=== PATIENT | male | born 1960 | race Caucasian/White ===

== ENCOUNTER 2023-01-28 14:24 | Inpatient (IN) | payer OTHER ==
--- NOTE | 2023-01-28 15:00 | ED ---
General Adult HPI - General Chief complaint: Recheck/Abnormal Lab/Rx Stated complaint: Abn Labs Time Seen by Provider: 01/28/23 14:35 Source: patient, EMS, RN notes reviewed, old records reviewed Mode of arrival: EMS Limitations: no limitations - History of Present Illness Initial comments: This is a 8-year-old male who presents emergency department because his physician called him and told to come in because he has some lab abnormality. We had previously got a phone call the stated his potassium was elevated. Patient states he was recently [facility] where the was told he had a cardiac mass as well as a kidney mass but he was irritated with them and did not like the facility so he left AMA. Patient states he does not know w hat their plan was for the masses were from. Patient states he has no chest pain no difficulty breathing or shortness of breath per patient denies any abdominal pain patient denies nausea vomiting. Patient denies headache patient denies numbness weakness. Patient denies any symptoms whatsoever he only came in because his physician told him to come to the emergency department. - Related Data Home Medications Medication Instructions Recorded Confirmed Atorvastatin [Lipitor] 40 mg PO HS 01/28/23 01/28/23 Cholecalciferol [Vitamin D3 (25 50 mcg PO DAILY 01/28/23 01/28/23 Mcg = 1000 Iu)] Empagliflozin [Jardiance] 25 mg PO DAILY 01/28/23 01/28/23 Famotidine [Pepcid] 20 mg PO BID 01/28/23 01/28/23 Ferrous Sulfate [Feosol] 325 mg PO BID 01/28/23 01/28/23 Furosemide [Lasix] 20 mg PO BID 01/28/23 01/28/23 Gabapentin 600 mg PO BID 01/28/23 01/28/23 Insulin NPH/Reg Insulin 70/30 50 unit SQ AC-SUPPER 01/28/23 01/28/23 [humuLIN 70/30 VIAL] Insulin NPH/Reg Insulin 70/30 60 units SQ AC-BRKFST 01/28/23 01/28/23 [humuLIN 70/30 VIAL] Liraglutide [Victoza 2-Shree] 1.8 mg SQ DAILY@1200 01/28/23 01/28/23 Magnesium Oxide [Magox 400] 400 mg PO DAILY 01/28/23 01/28/23 Meloxicam [Mobic] 15 mg PO DAILY 01/28/23 01/28/23 Metoprolol Tartrate [Lopressor] 50 mg PO BID 01/28/23 01/28/23 allopurinoL [Zyloprim] 100 mg PO DAILY 01/28/23 01/28/23 amLODIPine [Norvasc] 10 mg PO DAILY 01/28/23 01/28/23 calcitrioL [Calcitriol] 0.5 mcg PO SUMOWEFR 01/28/23 01/28/23 lisinopriL [Zestril] 10 mg PO DAILY 01/28/23 01/28/23 metFORMIN HCL 1,000 mg PO BID 01/28/23 01/28/23 traMADol HCL 100 mg PO Q8H PRN 01/28/23 01/28/23 Allergies Allergy/AdvReac Type Severity Reaction Status Date / Time avocado Allergy Swelling Verified 01/28/23 17:25 Penicillins Allergy Rash/Hives Verified 01/28/23 17:25 Review of Systems ROS Statement: Those systems with pertinent positive or pertinent negative responses have been documented in the HPI. ROS Other: All systems not noted in ROS Statement are negative. General Exam - General Exam Comments Initial Comments: GENERAL: Patient is well-developed and well-nourished. Patient is nontoxic and well- hydrated and is in no acute distress. ENT: Neck is soft and supple. No significant lymphadenopathy is noted. Oropharynx is clear. Moist mucous membranes. Neck has full range of motion without eliciting any pain. EYES: The sclera were anicteric and conjunctiva were pink and moist. Extraocular movements were intact and pupils were equal round and reactive to light. Eyelids were unremarkable. PULMONARY: Unlabored respirations. Good breath sounds bilaterally. No audible rales rhonchi or wheezing was noted. CARDIOVASCULAR: There is a regular rate and rhythm without any murmurs gallops or rubs. ABDOMEN: Soft and nontender with normal bowel sounds. SKIN: Skin is clear with no lesions or rashes and otherwise unremarkable. NEUROLOGIC: Patient is alert and oriented x3. Cranial nerves II through XII are grossly intact. Motor and sensory are also intact. Normal speech, volume and content. Symmetrical smile. MUSCULOSKELETAL: Normal extremities with adequate strength and full range of motion. Edema 2+ ankle ankle left LYMPHATICS: No significant lymphadenopathy is noted PSYCHIATRIC: Normal psychiatric evaluation. Limitations: no limitations Course Vital Signs 01/28/23 14:25 Temperature 98.7 F Pulse Rate 93 Respiratory 18 Rate Blood Pressure 106/79 O2 Sat by Pulse 96 Oximetry Medical Decision Making - Medical Decision Making EKG is interpreted by myself. EKG shows sinus rhythm at 92 bpm UT interval 276 QRS is 99 Q-T intervals 362 QTC is 412. Patient's EKG shows no ST segment elevation or depression Was pt. sent in by a medical professional or institution (CHRISTOPHER Desai, [employer], urgent care, hospital, or care home...) When possible be specific @ -Patient's primary medical care doctor sent the patient to the emergency department Did you speak to anyone other than the patient for history (EMS, parent, family, police, friend...)? What history was obtained from this source @ -No Did you review nursing and triage notes (agree or disagree)? Why? @ -I reviewed and agree with nursing and triage notes Were old charts reviewed (outside hosp., previous admission, EMS record, old EKG, old radiological studies, urgent care reports/EKG's, care home records)? Report findings @ -. I reviewed prior charts and lab work on this patient from a previous hospital and from previous visits here Differential Diagnosis (chest pain, altered mental status, abdominal pain women, abdominal pain men, vaginal bleeding, weakness, fever, dyspnea, syncope, headache, dizziness, GI bleed, back pain, seizure, CVA, palpatations, mental health, musculoskeletal)? @ -. Hyperkalemia EKG interpreted by me (3pts min.). @ -As above X-rays interpreted by me (1pt min.). @ -None done CT interpreted by me (1pt min.). @ -None done U/S interpreted by me (1pt. min.). @ -None done What testing was considered but not performed or refused? (CT, X-rays, U/S, labs)? Why? @ -None What meds were considered but not given or refused? Why? @ -None Did you discuss the management of the patient with other professionals (professionals i.e. CHRISTOPHER Desai, ST[employer]TER, lab, RT, psych nurse, public health social worker, vending mechanic, teacher, chief nursing officer, cooperative manager)? Give summary @ -I spoke with son physicians and they agreed to admit the patient Was smoking cessation discussed for >3mins.? @ -No Was critical care preformed (if so, how long)? @ -No Were there social determinants of health that impacted care today? How? (Homelessness, low income, unemployed, alcoholism, drug addiction, transportation, low edu. Level, literacy, decrease access to med. care, alf, rehab)? @ -No Was there de-escalation of care discussed even if they declined (Discuss DNR or withdrawal of care, Hospice)? DNR status @ -No What co-morbidities impacted this encounter? (DM, HTN, Smoking, COPD, CAD, Cancer, CVA, ARF, Chemo, Hep., AIDS, mental health diagnosis, sleep apnea, morbid obesity)? @ -None Was patient admitted / discharged? Hospital course, mention meds given and route, prescriptions, significant lab abnormalities, going to OR and other pe rtinent info. @ -Potassium was elevated so gave the patient Kayexalate as well as 15 units of IV insulin, sodium bicarbonate, calcium chloride. I spoke with son physicians agreed to admit the patient. I admitted the patient I wrote admitting orders. Undiagnosed new problem with uncertain prognosis? @ -No Drug Therapy requiring intensive monitoring for toxicity (Heparin, Nitro, Insulin, Cardizem)? @ -No Were any procedures done? @ -No Diagnosis/symptom? @ -Hyperkalemia Acute, or Chronic, or Acute on Chronic? @ -Acute Uncomplicated (without systemic symptoms) or Complicated (systemic symptoms)? @ -Complicated Side effects of treatment? @ -No Exacerbation, Progression, or Severe Exacerbation? @ -No Poses a threat to life or bodily function? How? (Chest pain, USA, MA, pneumonia, PE, COPD, DKA, ARF, appy, cholecystitis, CVA, Diverticulitis, Homicidal, Suicidal, threat to staff... and all critical care pts) @ -Yes this could lead to an arrhythmia and Diagnosis/symptom? @ -Hyperglycemia Acute, or Chronic, or Acute on Chronic? @ -Acute Uncomplicated (without systemic symptoms) or Complicated (systemic symptoms)? @ -Complicated Side effects of treatment? @ -none Exacerbation, Progression, or Severe Exacerbation] @ -no Poses a threat to life or bodily function? @ -no - Lab Data Result diagrams: 01/28/23 15:55 01/28/23 15:55 Lab Results 01/28/23 01/28/23 01/28/23 Range/Units 15:55 15:55 17:44 WBC 11.7 H (3.8-10.6) k/uL RBC 4.04 L (4.30-5.90) m/uL Hgb 9.6 L (13.0-17.5) gm/dL Hct 32.8 L (39.0-53.0) % MCV 81.2 (80.0-100.0) fL MCH 23.7 L (25.0-35.0) pg MCHC 29.2 L (31.0-37.0) g/dL RDW 16.4 H (11.5-15.5) % Plt Count 322 (150-450) k/uL MPV 8.8 Neutrophils % 79 % Lymphocytes % 14 % Monocytes % 3 % Eosinophils % 2 % Basophils % 1 % Neutrophils # 9.2 H (1.3-7.7) k/uL Lymphocytes # 1.7 (1.0-4.8) k/uL Monocytes # 0.4 (0-1.0) k/uL Eosinophils # 0.3 (0-0.7) k/uL Basophils # 0.1 (0-0.2) k/uL Hypochromasia Marked Anisocytosis Slight Sodium 134 L (137-145) mmol/L Potassium 6.1 H* (3.5-5.1) mmol/L Chloride 97 L (98-107) mmol/L Carbon Dioxide 20 L (22-30) mmol/L Anion Gap 17 mmol/L BUN 47 H (9-20) mg/dL Creatinine 2.90 H (0.66-1.25) mg/dL Est GFR (CKD-EPI)AfAm 26 (>60 ml/min/1.73 sqM) Est GFR (CKD-EPI)NonAf 22 (>60 ml/min/1.73 sqM) Glucose 650 H* (74-99) mg/dL Calcium 9.7 (8.4-10.2) mg/dL Magnesium 1.9 (1.6-2.3) mg/dL Total Bilirubin 0.4 (0.2-1.3) mg/dL AST 13 L (17-59) U/L ALT 13 (4-49) U/L Alkaline Phosphatase 275 H (38-126) U/L Total Protein 7.2 (6.3-8.2) g/dL Albumin 3.4 L (3.5-5.0) g/dL Acetone, Qual Negative (Negative) Disposition Clinical Impression: Hyperkalemia, Hyperglycemia, Renal mass, Cardiac mass, Acute kidney injury Disposition: ADMITTED IP TO THIS HOSP Referrals: Sarah Owusu MD [Primary Care Provider] - 1-2 days Time of Disposition: 20:04
[2023-01-28 16:14] LABS: Anisocytosis Slight; Basophils # (A) 0.1 k/uL (0-0.2); Basophils % (A) 1 %; Eosinophils # (A) 0.3 k/uL (0-0.7); Eosinophils % (A) 2 %; HCT 32.8 % (39.0-53.0); HGB 9.6 gm/dL (13.0-17.5); Hypochromasia Marked; Lymphocytes # (A) 1.7 k/uL (1.0-4.8); Lymphocytes % (A) 14 %; MCH 23.7 pg (25.0-35.0); MCHC 29.2 g/dL (31.0-37.0); MCV 81.2 fL (80.0-100.0); Mean Platelet Volume 8.8; Monocytes # (A) 0.4 k/uL (0-1.0); Monocytes % (A) 3 %; Neutrophils # (A) 9.2 k/uL (1.3-7.7); Neutrophils % (A) 79 %; Platelet Count 322 k/uL (150-450); RBC 4.04 m/uL (4.30-5.90); RDW 16.4 % (11.5-15.5); WBC 11.7 k/uL (3.8-10.6)
[2023-01-28 16:30] LABS: ALT 13 U/L (4-49); AST 13 U/L (17-59); African American GFR (CKD) 26 (>60 ml/min/1.73 sqM); Albumin 3.4 g/dL (3.5-5.0); Alkaline Phosphatase 275 U/L (38-126); Anion Gap 17 mmol/L; Blood Urea Nitrogen 47 mg/dL (9-20); Calcium 9.7 mg/dL (8.4-10.2); Carbon Dioxide 20 mmol/L (22-30); Chloride 97 mmol/L (98-107); Magnesium 1.9 mg/dL (1.6-2.3); Non-African American GFR(CKD) 22 (>60 ml/min/1.73 sqM); Sodium 134 mmol/L (137-145); Total Bilirubin 0.4 mg/dL (0.2-1.3); Total Protein 7.2 g/dL (6.3-8.2)
[2023-01-28 16:43] LABS: Glucose 650 mg/dL (74-99); Potassium 6.1 mmol/L (3.5-5.1)
[2023-01-28] MEDS ORDERED: INSULIN ASPART (NovoLOG) 100 UNIT/ML VIAL SQ ONE (17:02)
[2023-01-28] MEDS ORDERED: SODIUM CHLORIDE 0.9% 500 ML 500 ML IV ONE (17:02)
[2023-01-28] MEDS ORDERED: INSULIN REGULAR 100 UNIT/ML VIAL (IV) IV ONE (17:06)
[2023-01-28] MEDS ORDERED: SODIUM BICARB 8.4% 50 ML SYR (1 MEQ/ML) IV STA (17:07)
[2023-01-28] MEDS ORDERED: SODIUM POLYSTYRENE SULFONATE 15 GM/60 ML BOTTLE PO STA (17:07)
[2023-01-28] MEDS ORDERED: CALCIUM CHLORIDE 100 MG/ML 10 ML SYRINGE IVP STA (17:07)
[2023-01-28] MEDS ORDERED: SODIUM CHLORIDE 0.9% 1,000 ML IV ONE (20:08)
[2023-01-28 20:39] LABS: Glucose,Whole Blood 286 mg/dL (70-110)
--- NOTE | 2023-01-28 23:42 | P.HPIM ---
History of Present Illness H&P Date: 01/28/23 Patient is a 62-year-old male with a PMH of type II DM, chronic debility (wheelchair bound), hypertension, hyperlipidemia, who was sent to the emergency room by his PCP for abnormal blood work. Patient reports that he received a call earlier today from his PCPs office saying that his potassium was elevated and that his kidney function was abnormal any active or the emergency room. He also reports recently being admitted at [facility] were he was told he had a cardiac mass as well as both full kidney masses the patient was not satisfied with her care and decided to leave AMA. He does not recall the exact dates from when he was hospitalized but states that it was in the last few we eks. Patient does not recall if he has seen an oncologist yet. He had no active complaints at the time of interview. Denied experiencing chest discomfort, shortness of breath, fever, chills, cough, nausea, vomiting, abdominal pain, diarrhea. In the emergency room and EKG revealed sinus rhythm at [address]/T-wave changes noted as reviewed by me. Laboratory evaluation revealed a potassium of 6.1, glucose 650, creatinine 2.9 (baseline 1.6), glucose 650, anion gap 17, acetone negative, sodium 134, chloride 97, WBC count 11.7, and hemoglobin 9.6 (down from 13 in 01/2022). ED documentation reviewed and case discussed with ED provider. [] Review of systems: Pertinent positives and negatives as discussed in HPI, a complete review of systems was performed and all other systems are negative. Physical examination: Vital signs reviewed General: Disheveled male, no distress, appears older than stated age, obese Derm: no unusual rashes/lesions, warm Head: atraumatic, normocephalic, symmetric Eyes: EOMI, no lid lag, anicteric sclera, pupils equal round reactive to light ENT: Nose and ears atraumatic Neck: No cervical lymphadenopathy, trachea midline, supple Mouth: no lip lesion, mucus membranes moist Cardiovascular: S1S2 reg, no murmur, positive dorsalis pedis pulse bilateral, 1+ bilateral lower extremity edema Lungs: CTA bilateral, no rhonchi, no rales, no accessory muscle use Abdominal: soft, nontender to palpation, no guarding Ext: muscle strength 4 out of 5 in all 4 extremities grossly, no gross muscle atrophy, no contractures, Neuro: CN II-XI grossly intact, no gross focal neuro deficits Psych: Alert, oriented, appropriate affect Assessment: Hyperkalemia, suspect may be due to acute kidney injury Uncontrolled type II DM with hyperglycemia Leukocytosis, likely due to acute stress with no signs of active infection at this time Normocytic anemia, unclear etiology Bilateral lower extremity pitting edema Chronic conditions: Chronic debility, hypertension, hyperlipidemia Imaging: In the emergency room and EKG revealed sinus rhythm at [address]/T-wave changes noted as reviewed by me Data Review: Laboratory evaluation revealed a potassium of 6.1, glucose 650, creatinine 2.9 (baseline 1.6), glucose 650, anion gap 17, acetone negative, sodium 134, chloride 97, WBC count 11.7, and hemoglobin 9.6 (down from 13 in 01/2022). Plan: Status post hyperkalemia cocktail including 30 g Kayexalate Insulin sliding scale and blood glucose monitoring Monitor BMP Obtain echocardiogram Cardiac monitoring Nephrology consult Continue home medications aside from PIERO inhibitor and oral hypoglycemic agents Check anemia panel DVT prophylaxis: Lovenox Subq The patient is admitted with an anticipated greater than 2 midnight stay for evaluation of hyperkalemia CODE STATUS: Full Code Discussed with: Patient Anticipated discharge place: Home Past Medical History - Past Family History Father Family Medical History: Hyperlipidemia Medications and Allergies Home Medications Medication Instructions Recorded Confirmed Type Atorvastatin [Lipitor] 40 mg PO HS 01/28/23 01/28/23 History Cholecalciferol [Vitamin D3 (25 50 mcg PO DAILY 01/28/23 01/28/23 History Mcg = 1000 Iu)] Empagliflozin [Jardiance] 25 mg PO DAILY 01/28/23 01/28/23 History Famotidine [Pepcid] 20 mg PO BID 01/28/23 01/28/23 History Ferrous Sulfate [Feosol] 325 mg PO BID 01/28/23 01/28/23 History Furosemide [Lasix] 20 mg PO BID 01/28/23 01/28/23 History Gabapentin 600 mg PO BID 01/28/23 01/28/23 History Insulin NPH/Reg Insulin 70/30 50 unit SQ AC-SUPPER 01/28/23 01/28/23 History [humuLIN 70/30 VIAL] Insulin NPH/Reg Insulin 70/30 60 units SQ AC-BRKFST 01/28/23 01/28/23 History [humuLIN 70/30 VIAL] Liraglutide [Victoza 2-Shree] 1.8 mg SQ DAILY@1200 01/28/23 01/28/23 History Magnesium Oxide [Magox 400] 400 mg PO DAILY 01/28/23 01/28/23 History Meloxicam [Mobic] 15 mg PO DAILY 01/28/23 01/28/23 History Metoprolol Tartrate [Lopressor] 50 mg PO BID 01/28/23 01/28/23 History allopurinoL [Zyloprim] 100 mg PO DAILY 01/28/23 01/28/23 History amLODIPine [Norvasc] 10 mg PO DAILY 01/28/23 01/28/23 History calcitrioL [Calcitriol] 0.5 mcg PO SUMOWEFR 01/28/23 01/28/23 History lisinopriL [Zestril] 10 mg PO DAILY 01/28/23 01/28/23 History metFORMIN HCL 1,000 mg PO BID 01/28/23 01/28/23 History traMADol HCL 100 mg PO Q8H PRN 01/28/23 01/28/23 History Allergies Allergy/AdvReac Type Severity Reaction Status Date / Time avocado Allergy Swelling Verified 01/28/23 17:25 Penicillins Allergy Rash/Hives Verified 01/28/23 17:25 Physical Exam Vitals: Vital Signs Temp Pulse Resp BP Pulse Ox 01/28/23 20:20 112 H 20 104/58 97 01/28/23 20:00 111 H 01/28/23 19:00 108 H 18 98 01/28/23 14:25 98.7 F 93 18 106/79 96 Intake and Output 01/28/23 01/28/23 01/29/23 14:59 22:59 06:59 Other: Weight 113.398 kg Results CBC & Chem 7: 01/28/23 15:55 01/28/23 15:55 Labs: Abnormal Lab Results - Last 24 Hours (Table) 01/28/23 01/28/23 01/28/23 Range/Units 15:55 15:55 20:38 WBC 11.7 H (3.8-10.6) k/uL RBC 4.04 L (4.30-5.90) m/uL Hgb 9.6 L (13.0-17.5) gm/dL Hct 32.8 L (39.0-53.0) % MCH 23.7 L (25.0-35.0) pg MCHC 29.2 L (31.0-37.0) g/dL RDW 16.4 H (11.5-15.5) % Neutrophils # 9.2 H (1.3-7.7) k/uL Sodium 134 L (137-145) mmol/L Potassium 6.1 H* (3.5-5.1) mmol/L Chloride 97 L (98-107) mmol/L Carbon Dioxide 20 L (22-30) mmol/L BUN 47 H (9-20) mg/dL Creatinine 2.90 H (0.66-1.25) mg/dL Glucose 650 H* (74-99) mg/dL POC Glucose (mg/dL) 286 H (70-110) mg/dL AST 13 L (17-59) U/L Alkaline Phosphatase 275 H (38-126) U/L Albumin 3.4 L (3.5-5.0) g/dL
[2023-01-29 01:28] LABS: Glucose,Whole Blood 346 mg/dL (70-110)
[2023-01-29 06:43] LABS: Glucose,Whole Blood 295 mg/dL (70-110)
[2023-01-29] MEDS ORDERED: INSULIN DETEMIR (LEVEMIR) 100 UNIT/ML SYR SQ SCH (07:00)
[2023-01-29] MEDS: INSULIN ASPART (NovoLOG) 100 UNIT/ML VIAL SQ SCH ×4 (07:39→21:45)
[2023-01-29] MEDS ORDERED: ENOXAPARIN 40 MG/0.4 ML SYRINGE SQ SCH (09:00)
[2023-01-29] MEDS ORDERED: amLODIPine 10 MG TAB PO SCH (09:00)
[2023-01-29 09:32] LABS: Anisocytosis Slight; Basophils # (A) 0.1 k/uL (0-0.2); Basophils % (A) 1 %; Eosinophils # (A) 0.3 k/uL (0-0.7); Eosinophils % (A) 3 %; HCT 33.6 % (39.0-53.0); HGB 10.1 gm/dL (13.0-17.5); Hypochromasia Marked; Lymphocytes # (A) 2.1 k/uL (1.0-4.8); Lymphocytes % (A) 17 %; MCH 23.8 pg (25.0-35.0); MCHC 30.1 g/dL (31.0-37.0); MCV 79.2 fL (80.0-100.0); Mean Platelet Volume 7.9; Microcytosis Slight; Monocytes # (A) 0.4 k/uL (0-1.0); Monocytes % (A) 3 %; Neutrophils # (A) 9.5 k/uL (1.3-7.7); Neutrophils % (A) 76 %; Platelet Count 352 k/uL (150-450); RBC 4.23 m/uL (4.30-5.90); RDW 16.6 % (11.5-15.5); WBC 12.5 k/uL (3.8-10.6)
[2023-01-29 09:44] LABS: African American GFR (CKD) 32 (>60 ml/min/1.73 sqM); Anion Gap 14 mmol/L; Blood Urea Nitrogen 41 mg/dL (9-20); Calcium 10.4 mg/dL (8.4-10.2); Carbon Dioxide 26 mmol/L (22-30); Chloride 103 mmol/L (98-107); Glucose 258 mg/dL (74-99); Magnesium 1.7 mg/dL (1.6-2.3); Non-African American GFR(CKD) 28 (>60 ml/min/1.73 sqM); Potassium 4.5 mmol/L (3.5-5.1); Sodium 143 mmol/L (137-145)
[2023-01-29] MEDS: GABAPENTIN 300 MG CAP PO SCH ×2 (09:58→21:45)
[2023-01-29] MEDS: FUROSEMIDE 20 MG TAB PO SCH ×2 (09:58→21:45)
[2023-01-29] MEDS: METOPROLOL TARTRATE 50 MG TAB PO SCH ×2 (09:58→21:46)
[2023-01-29] MEDS: allopurinoL 100 MG TAB PO SCH (09:58)
[2023-01-29 11:31] LABS: Glucose,Whole Blood 268 mg/dL (70-110)
[2023-01-29 12:03] LABS: % Iron Saturation 9.64 (15.00-50.00)
--- NOTE | 2023-01-29 12:09 | P.NPCON ---
History of Present Illness - Reason for Consult acute renal failure - History of Present Illness Patient is a 62-year-old male with history of type 2 diabetes, hypertension and chronic kidney disease NKF stage IIIA with previous creatinine around 1.6-1.4 mg/dL in 2019 and 2021. Patient was sent into the hospital by PCP due to elevated potassium and worsening renal function. Patient is noted to be on meloxicam and lisinopril at home prior to admission. He denied any significant urinary symptoms and states that he has been voiding. Blood pressure is on the lower side with systolic at 104-106 mmHg. Serum creatinine was 3.0 on 01/27/2023 and is down to 2.4 today. Status post IV fluids. Potassium is down to 4.5 Review of Systems as per HPI Past Medical History - Past Family History Father Family Medical History: Hyperlipidemia Medications and Allergies Home Medications Medication Instructions Recorded Confirmed Type Atorvastatin [Lipitor] 40 mg PO HS 01/28/23 01/28/23 History Cholecalciferol [Vitamin D3 (25 50 mcg PO DAILY 01/28/23 01/28/23 History Mcg = 1000 Iu)] Empagliflozin [Jardiance] 25 mg PO DAILY 01/28/23 01/28/23 History Famotidine [Pepcid] 20 mg PO BID 01/28/23 01/28/23 History Ferrous Sulfate [Feosol] 325 mg PO BID 01/28/23 01/28/23 History Furosemide [Lasix] 20 mg PO BID 01/28/23 01/28/23 History Gabapentin 600 mg PO BID 01/28/23 01/28/23 History Insulin NPH/Reg Insulin 70/30 50 unit SQ AC-SUPPER 01/28/23 01/28/23 History [humuLIN 70/30 VIAL] Insulin NPH/Reg Insulin 70/30 60 units SQ AC-BRKFST 01/28/23 01/28/23 History [humuLIN 70/30 VIAL] Liraglutide [Victoza 2-Shree] 1.8 mg SQ DAILY@1200 01/28/23 01/28/23 History Magnesium Oxide [Magox 400] 400 mg PO DAILY 01/28/23 01/28/23 History Meloxicam [Mobic] 15 mg PO DAILY 01/28/23 01/28/23 History Metoprolol Tartrate [Lopressor] 50 mg PO BID 01/28/23 01/28/23 History allopurinoL [Zyloprim] 100 mg PO DAILY 01/28/23 01/28/23 History amLODIPine [Norvasc] 10 mg PO DAILY 01/28/23 01/28/23 History calcitrioL [Calcitriol] 0.5 mcg PO SUMOWEFR 01/28/23 01/28/23 History lisinopriL [Zestril] 10 mg PO DAILY 01/28/23 01/28/23 History metFORMIN HCL 1,000 mg PO BID 01/28/23 01/28/23 History traMADol HCL 100 mg PO Q8H PRN 01/28/23 01/28/23 History Allergies Allergy/AdvReac Type Severity Reaction Status Date / Time avocado Allergy Swelling Verified 01/28/23 17:25 Penicillins Allergy Rash/Hives Verified 01/28/23 17:25 Physical Exam Vitals: Vital Signs Temp Pulse Resp BP Pulse Ox 01/29/23 10:01 115 H 20 115/59 99 01/29/23 07:43 88 20 126/77 99 01/29/23 06:30 98.9 F 121 H 18 126/79 97 01/29/23 02:00 117 H 20 105/60 95 01/28/23 20:20 112 H 20 104/58 97 01/28/23 20:00 111 H 01/28/23 19:00 108 H 18 98 01/28/23 14:25 98.7 F 93 18 106/79 96 Patient is awake, comfortable, no acute distress. Examination of the heart S1 and S2 Examination of the lungs shows bilateral breath sounds are heard Examination of the extremities shows no edema. Abdomen is soft, non tender BLOCKLAYER exam is intact. Results - Lab Results Most recent lab results Calcium 10.4 mg/dL (8.4-10.2) H 01/29/23 06:58 Magnesium 1.7 mg/dL (1.6-2.3) 01/29/23 06:58 01/29/23 06:58 01/29/23 06:58 Assessment and Plan Assessment: 1. Acute kidney injury, nonoliguric secondary to hypotension in the setting of use of NSAIDs and PIERO inhibitor's. Renal function is improving. 2. Chronic kidney disease NKF stage III with previous creatinine at 1.4-1.6 mg/dL in 2021 and 2019. Etiology is diabetic kidney disease as urine microalbumin creatinine ratio was elevated at 301 in 2021 but UA was negative for protein 3. Hyperkalemia associated with acute kidney injury in the setting of use of piero inhibitors and nonsteroidal anti-inflammatory agents. Currently improved 4. Anemia rule out iron deficiency 5. Hypertension with CK D currently controlled 6. Mild lower extremity edema possibly related to amlodipine Plan: Continue to hold lisinopril Avoid use of nonsteroidal anti-inflammatory agents including meloxicam Hold Lasix for now. Decrease dose of amlodipine to 5 mg daily Check UA Check ultrasound of the kidneys Thank you for the consultation. We will continue to follow the patient with you during his hospitalization.
[2023-01-29 14:21] LABS: Appearance,Urine Clear (Clear); Color,Urine Yellow; Specific Gravity,Urine 1.015 (1.001-1.035)
[2023-01-29 14:22] LABS: Bilirubin,Urine Negative (Negative); Blood,Urine Trace (Negative); Glucose,Urine (UA) 4+ (Negative); Ketones,Urine Negative (Negative); Leukocyte Esterase,Urine Negative (Negative); Nitrite,Urine Negative (Negative); Protein,Urine 1+ (Negative); Urobilinogen,Urine 0.2 mg/dL (<2.0)
[2023-01-29 14:25] LABS: Bacteria,Urine Rare /hpf; Hyaline Casts,Urine 3 /lpf (0-2); Mucus,Urine Rare /hpf; RBC,Urine 2 /hpf (0-5); Squamous Epithelial Cell,Urine <1 /hpf (0-4); WBC,Urine 1 /hpf (0-5)
--- NOTE | 2023-01-29 14:45 | US ---
EXAMINATION TYPE: US kidneys/renal and bladder DATE OF EXAM: 01/29/2023 COMPARISON: NONE CLINICAL INDICATION: Male, 62 years old with history of jose; ckd EXAM MEASUREMENTS: Right Kidney: 12.9 x 6.3 x 7.3 cm Left Kidney: 11.9 x 4.8 x 6.7 cm Right Kidney: 6.0 x 5.5 x 5.7cm mid pole hypoechoic lesion Left Kidney: 1.4 x 1.2 x 1.0cm mid pole cyst Bladder: not distended There is no evidence for hydronephrosis at this point in time. No nephrolithiasis is seen. No cornelia s are identified. The urinary bladder is anechoic. Bilateral ureteral jets are seen. IMPRESSION: 1. Normal sized kidneys. 2. left renal cortex mildly hyperechoic suggesting mild medical renal disease. 3. Hypoechoic mass in the right kidney which most likely represents a cyst. Could be confirmed with C T of the abdomen and pelvis. 4. No hydronephrosis or renal calculus
--- NOTE | 2023-01-29 16:29 | P.PN ---
Subjective Progress Note Date: 01/29/23 Hospital Course: 62-year-old male with a PMH of type II DM, chronic debility (wheelchair bound), hypertension, hyperlipidemia, who was sent to the emergency room by his PCP for abnormal blood work. In the emergency room and EKG revealed sinus rhythm at [address]/T-wave changes noted as reviewed by me. Laboratory evaluation revealed a potassium of 6.1, glucose 650, creatinine 2.9 (baseline 1.6), glucose 650, anion gap 17, acetone negative, sodium 134, chloride 97, WBC count 11.7, and hemoglobin 9.6 (down from 13 in 01/2022). Patient admitted for acute kidney injury, uncontrolled type 2 diabetes with hyperglycemia, and hyperkalemia. CODY on 01/07/23 showed large, mobile, serpiginous right atrial mass seen originating from the IVC to the right atrium and prolapsing into the RV measuring greater than 6 cm x 1 cm, with ultrasound also demonstrated 2 solid masses concerning for RCC, patient does have a family history of RCC, CT head and MRI brain and ulcerative sclera did not show any acute intracranial abnormalities, only chronic changes Subjective: Patient seen and examined at bedside. No acute events overnight. Pertinent positives and negatives as discussed above, a complete review of systems was performed and all other systems are negative. Vitals Signs Reviewed. General: Disheveled male, no distress, appears older than stated age, obese Derm: no unusual rashes/lesions, warm Head: atraumatic, normocephalic, symmetric Eyes: EOMI, no lid lag, anicteric sclera, pupils equal round reactive to light ENT: Nose and ears atraumatic Neck: No cervical lymphadenopathy, trachea midline, supple Mouth: no lip lesion, mucus membranes moist Cardiovascular: S1S2 reg, no murmur, positive dorsalis pedis pulse bilateral, 1+ bilateral lower extremity edema Lungs: CTA bilateral, no rhonchi, no rales, no accessory muscle use Abdominal: soft, nontender to palpation, no guarding Ext: muscle strength 4 out of 5 in all 4 extremities grossly, no gross muscle at rophy, no contractures, Neuro: CN II-XI grossly intact, no gross focal neuro deficits Psych: Alert, oriented, appropriate affect Data Reviewed Today: Pertinent Labs: WBC 12.5, hemoglobin 10.1, MCV 79.2, platelet 252, sodium 143, potassium 4.5, creatinine 2.44, blood sugars range between 258-346, low iron, low percent saturation, low TIBC, ferritin, urinalysis shows negative leukocyte esterase and nitrites, 1+ protein. Imaging: Bladder ultrasound shows a hypoechoic mass in the right kidney most likely represent a cyst, no hydronephrosis or renal calculus. Assessment and Plan: Active: Syncope Large right atrial mass Renal masses Acute kidney injury on chronic kidney disease, improving Hyperkalemia, resolved Uncontrolled type 2 diabetes with hyperglycemia Leukocytosis Anemia of chronic disease -Based on the history of syncope, and large intracardiac mass, patient would benefit from a tertiary care center evaluation. Patient was at [facility] about 3 weeks ago a left AMA. Currently he does not want to go back to [facility] -Renal function slightly improved -Nephrology note reviewed, hold lisinopril, hold Lasix, decrease dose of amlodipine 5 mg -Levemir increased to 30 units twice a day, sliding scale insulin, monitor for hypoglycemia -Blood cultures ordered Chronic: Hypertension Gout Neuropathy GERD DVT ppx: Subcu heparin Code status: Full code Anticipated discharge place: Pending clinical course Anticipated discharge time: Pending clinical course Objective - Vital Signs Vital signs: Vital Signs Temp 98.9 F 01/29/23 16:00 Pulse 100 01/29/23 16:00 Resp 16 01/29/23 16:00 BP 126/82 01/29/23 16:00 Pulse Ox 99 01/29/23 10:01 FiO2 Intake & Output 01/28/23 01/29/23 01/29/23 18:59 06:59 18:59 Weight 113.398 kg - Labs CBC & Chem 7: 01/29/23 06:58 01/29/23 06:58 Labs: Abnormal Lab Results - Last 24 Hours (Table) 01/28/23 01/28/23 01/29/23 Range/Units 15:55 20:38 01:26 WBC (3.8-10.6) k/uL RBC (4.30-5.90) m/uL Hgb (13.0-17.5) gm/dL Hct (39.0-53.0) % MCV (80.0-100.0) fL MCH (25.0-35.0) pg MCHC (31.0-37.0) g/dL RDW (11.5-15.5) % Neutrophils # (1.3-7.7) k/uL Sodium 134 L (137-145) mmol/L Potassium 6.1 H* (3.5-5.1) mmol/L Chloride 97 L (98-107) mmol/L Carbon Dioxide 20 L (22-30) mmol/L BUN 47 H (9-20) mg/dL Creatinine 2.90 H (0.66-1.25) mg/dL Glucose 650 H* (74-99) mg/dL POC Glucose (mg/dL) 286 H 346 H (70-110) mg/dL Calcium (8.4-10.2) mg/dL Iron (65-175) UG/DL TIBC (228-460) UG/DL % Saturation (15.00-50.00) Transferrin (204.0-354.0) mg/dL Ferritin (22.0-322.0) ng/mL AST 13 L (17-59) U/L Alkaline Phosphatase 275 H (38-126) U/L Albumin 3.4 L (3.5-5.0) g/dL Urine Protein (Negative) Urine Glucose (UA) (Negative) Urine Blood (Negative) Urine Bacteria (None) /hpf Hyaline Casts (0-2) /lpf Urine Mucus (None) /hpf 01/29/23 01/29/23 01/29/23 Range/Units 06:41 06:58 06:58 WBC 12.5 H (3.8-10.6) k/uL RBC 4.23 L (4.30-5.90) m/uL Hgb 10.1 L (13.0-17.5) gm/dL Hct 33.6 L (39.0-53.0) % MCV 79.2 L (80.0-100.0) fL MCH 23.8 L (25.0-35.0) pg MCHC 30.1 L (31.0-37.0) g/dL RDW 16.6 H (11.5-15.5) % Neutrophils # 9.5 H (1.3-7.7) k/uL Sodium (137-145) mmol/L Potassium (3.5-5.1) mmol/L Chloride (98-107) mmol/L Carbon Dioxide (22-30) mmol/L BUN (9-20) mg/dL Creatinine (0.66-1.25) mg/dL Glucose (74-99) mg/dL POC Glucose (mg/dL) 295 H (70-110) mg/dL Calcium (8.4-10.2) mg/dL Iron 19 L (65-175) UG/DL TIBC 197 L (228-460) UG/DL % Saturation 9.64 L (15.00-50.00) Transferrin 141.0 L (204.0-354.0) mg/dL Ferritin 884.0 H (22.0-322.0) ng/mL AST (17-59) U/L Alkaline Phosphatase (38-126) U/L Albumin (3.5-5.0) g/dL Urine Protein (Negative) Urine Glucose (UA) (Negative) Urine Blood (Negative) Urine Bacteria (None) /hpf Hyaline Casts (0-2) /lpf Urine Mucus (None) /hpf 01/29/23 01/29/23 01/29/23 Range/Units 06:58 11:29 14:12 WBC (3.8-10.6) k/uL RBC (4.30-5.90) m/uL Hgb (13.0-17.5) gm/dL Hct (39.0-53.0) % MCV (80.0-100.0) fL MCH (25.0-35.0) pg MCHC (31.0-37.0) g/dL RDW (11.5-15.5) % Neutrophils # (1.3-7.7) k/uL Sodium (137-145) mmol/L Potassium (3.5-5.1) mmol/L Chloride (98-107) mmol/L Carbon Dioxide (22-30) mmol/L BUN 41 H (9-20) mg/dL Creatinine 2.44 H (0.66-1.25) mg/dL Glucose 258 H (74-99) mg/dL POC Glucose (mg/dL) 268 H (70-110) mg/dL Calcium 10.4 H (8.4-10.2) mg/dL Iron (65-175) UG/DL TIBC (228-460) UG/DL % Saturation (15.00-50.00) Transferrin (204.0-354.0) mg/dL Ferritin (22.0-322.0) ng/mL AST (17-59) U/L Alkaline Phosphatase (38-126) U/L Albumin (3.5-5.0) g/dL Urine Protein 1+ H (Negative) Urine Glucose (UA) 4+ H (Negative) Urine Blood Trace H (Negative) Urine Bacteria Rare H (None) /hpf Hyaline Casts 3 H (0-2) /lpf Urine Mucus Rare H (None) /hpf
[2023-01-29 16:52] LABS: Glucose,Whole Blood 128 mg/dL (70-110)
--- NOTE | 2023-01-29 18:42 | CA ---
Transthoracic Echo Report Name: Jake Stapleton Age: 62 Gender: M : 1960 Exam Date: 01/29/2023 16:03 Exam Location: [place] [facility] Ht (in): 62 Wt (lb): 250 Ordering Physician: Nella Beard MD Attending/Referring Phys: Revenue Specialist Zoltan Larkin Procedure CPT: Indications: fluid overload Cardiac Hx: Technical Quality: Technically difficult study Contrast 1: Definity Total Dose (mL): 2 Contrast 2: Total Dose (mL): MEASUREMENTS (Male / Female) Normal Values 2D ECHO LV Diastolic Diameter PLAX 4.6 cm 4.2 - 5.9 / 3.9 - 5.3 cm LV Systolic Diameter PLAX 3.4 cm IVS Diastolic Thickness 0.9 cm 0.6 - 1.0 / 0.6 - 0.9 cm LVPW Diastolic Thickness 1.1 cm 0.6 - 1.0 / 0.6 - 0.9 cm LV Relative Wall Thickness 0.4 RV Internal Dim ED PLAX 3.7 cm LV Diastolic Volume MOD BP 64.0 cm??? 67 - 155 / 56 - 104 cm??? LV Systolic Volume MOD BP 49.8 cm??? 22 - 58 / 19 - 49 cm??? LV Ejection Fraction MOD BP 22.1 % >= 55 % LV Cardiac Index MOD BP 603.0 cm???/min???m??? LV Diastolic Volume MOD 4C 84.9 cm??? LV Systolic Volume MOD 4C 48.9 cm??? LV Ejection Fraction MOD 4C 42.4 % LV Cardiac Index MOD 4C 1537.9 cm???/min???m??? LV Diastolic Length 4C 7.9 cm LV Systolic Length 4C 7.6 cm LV Diastolic Volume MOD 2C 45.3 cm??? LV Systolic Volume MOD 2C 37.7 cm??? LV Ejection Fraction MOD 2C 16.8 % LV Cardiac Index MOD 2C 325.0 cm???/min???m??? LV Diastolic Length 2C 7.6 cm LV Systolic Length 2C 6.9 cm LA Volume 73.9 cm??? 18 - 58 / 22 - 52 cm??? LA Volume Index 32.2 cm???/m??? 16 - 28 cm???/m??? DOPPLER AV Peak Velocity 111.2 cm/s AV Peak Gradient 4.9 mmHg LVOT Peak Velocity 96.2 cm/s LVOT Peak Gradient 3.7 mmHg LVOT Velocity Time Integral 17.5 cm MV Peak Velocity 160.3 cm/s MV Peak Gradient 10.3 mmHg MV Mean Velocity 79.7 cm/s MV Mean Gradient 3.4 mmHg MV Velocity Time Integral 30.1 cm Mitral E Point Velocity 82.7 cm/s Mitral A Point Velocity 140.1 cm/s Mitral E to A Ratio 0.6 MV Deceleration Time 239.4 ms MV E' Velocity 6.2 cm/s Mitral E to MV E' Ratio 13.3 FINDINGS Left Ventricle Normal LV size. Mild concentric LVH. Left ventricular ejection fraction is estimated at 55-60 %. Right Ventricle Normal right ventricular size. Right Atrium There is a mobile thrombus originating within the RA and traveling across the tricuspid valve into the RV within each cardiac cycle and measures approx 5.3cm in length. Left Atrium Mild left atrial dilatation. LA volume index= 35ml/m2. Mitral Valve Mitral valve is not well visualized but appears moderate to severely calcified. Aortic Valve Mild AV calcification. No aortic stenosis. No aortic regurgitation. Tricuspid Valve Tricuspid valve not well visualized. Pulmonic Valve Pulmonic valve not well visualized. No pulmonic regurgitation. Pericardium Normal pericardium. Aorta Normal size aortic root. CONCLUSIONS Technically difficult study Normal LV systolic function. Mild concentric LVH Extremely mobile echodensity seems to be attached to the lower interatrial septum/tricuspid valve. The echodensity is mobile between the right atrium and right ventricle across the tricuspid valve. Moderate tricuspid regurgitation was identified. Differential diagnosis is myxoma versus thrombus versus vegetation Severe mitral annular calcification Previewed by: Dr. Rupert Jaimes MD (Electronically Signed) Final Date: 29 January 2023 18:41
[2023-01-29 20:13] LABS: Glucose,Whole Blood 232 mg/dL (70-110)
[2023-01-29] MEDS: INSULIN DETEMIR (LEVEMIR) 100 UNIT/ML SYR SQ SCH (21:45)
[2023-01-29] MEDS: ATORVASTATIN 40 MG TAB PO SCH (21:45)
[2023-01-29] MEDS: FAMOTIDINE 20 MG TAB PO SCH (21:46)
[2023-01-29] MEDS: HEPARIN SODIUM,PORCINE 5,000 UNIT/ML 1 ML VIAL SQ SCH (23:56)
[2023-01-30 06:12] LABS: Glucose,Whole Blood 85 mg/dL (70-110)
[2023-01-30] MEDS: INSULIN ASPART (NovoLOG) 100 UNIT/ML VIAL SQ SCH ×4 (06:13→20:23)
[2023-01-30] MEDS: INSULIN DETEMIR (LEVEMIR) 100 UNIT/ML SYR SQ SCH ×2 (07:44→20:23)
[2023-01-30 08:06] LABS: Anisocytosis Slight; Basophils # (A) 0.1 k/uL (0-0.2); Basophils % (A) 1 %; Eosinophils # (A) 0.4 k/uL (0-0.7); Eosinophils % (A) 3 %; HCT 31.2 % (39.0-53.0); HGB 9.3 gm/dL (13.0-17.5); Hypochromasia Marked; Lymphocytes # (A) 2.2 k/uL (1.0-4.8); Lymphocytes % (A) 17 %; MCH 23.5 pg (25.0-35.0); MCHC 29.8 g/dL (31.0-37.0); MCV 78.8 fL (80.0-100.0); Mean Platelet Volume 9.1; Microcytosis Slight; Monocytes # (A) 0.5 k/uL (0-1.0); Monocytes % (A) 4 %; Neutrophils # (A) 9.7 k/uL (1.3-7.7); Neutrophils % (A) 75 %; Platelet Count 331 k/uL (150-450); RBC 3.96 m/uL (4.30-5.90); RDW 16.8 % (11.5-15.5)
[2023-01-30 08:27] LABS: African American GFR (CKD) 42 (>60 ml/min/1.73 sqM); Anion Gap 16 mmol/L; Blood Urea Nitrogen 33 mg/dL (9-20); Calcium 9.9 mg/dL (8.4-10.2); Carbon Dioxide 25 mmol/L (22-30); Chloride 106 mmol/L (98-107); Glucose 91 mg/dL (74-99); Non-African American GFR(CKD) 36 (>60 ml/min/1.73 sqM); Potassium 3.8 mmol/L (3.5-5.1); Sodium 147 mmol/L (137-145)
[2023-01-30] MEDS: HEPARIN SODIUM,PORCINE 5,000 UNIT/ML 1 ML VIAL SQ SCH ×3 (08:54→23:22)
[2023-01-30] MEDS: amLODIPine 5 MG TAB PO SCH (08:54)
[2023-01-30] MEDS: METOPROLOL TARTRATE 50 MG TAB PO SCH ×2 (08:54→20:24)
[2023-01-30] MEDS: allopurinoL 100 MG TAB PO SCH (08:54)
[2023-01-30] MEDS: FUROSEMIDE 20 MG TAB PO SCH ×2 (08:54→20:24)
[2023-01-30] MEDS: GABAPENTIN 300 MG CAP PO SCH ×2 (08:54→20:23)
--- NOTE | 2023-01-30 09:06 | P.PN ---
Subjective Patient is seen in follow-up for acute kidney injury on chronic kidney disease. Renal function improving. Oral intake is good. Admits to good urine output. No vomiting or diarrhea. Vital signs are stable. General: No acute distress. HEENT: Head exam is unremarkable. LUNGS: No audible rhonchi or wheezes. HEART: Rate and Rhythm are regular. ABDOMEN: Nontender. EXTREMITITES: No edema. Objective - Vital Signs Vital signs: Vital Signs Temp 98.2 F 01/30/23 08:49 Pulse 115 H 01/30/23 08:49 Resp 18 01/30/23 08:49 BP 100/67 01/30/23 08:49 Pulse Ox 99 01/30/23 08:49 FiO2 Intake & Output 01/29/23 01/30/23 01/30/23 18:59 06:59 18:59 Intake Total 118 540 Output Total 625 225 Balance 118 -85 -225 Weight 113.398 kg Intake: Oral 118 540 Output: Urine 625 225 Other: Voiding Method Urinal # Voids 2 1 - Labs CBC & Chem 7: 01/30/23 07:52 01/30/23 07:52 Labs: Abnormal Lab Results - Last 24 Hours (Table) 01/29/23 01/29/23 01/29/23 Range/Units 06:58 06:58 06:58 WBC 12.5 H (3.8-10.6) k/uL RBC 4.23 L (4.30-5.90) m/uL Hgb 10.1 L (13.0-17.5) gm/dL Hct 33.6 L (39.0-53.0) % MCV 79.2 L (80.0-100.0) fL MCH 23.8 L (25.0-35.0) pg MCHC 30.1 L (31.0-37.0) g/dL RDW 16.6 H (11.5-15.5) % Neutrophils # 9.5 H (1.3-7.7) k/uL Sodium (137-145) mmol/L BUN 41 H (9-20) mg/dL Creatinine 2.44 H (0.66-1.25) mg/dL Glucose 258 H (74-99) mg/dL POC Glucose (mg/dL) (70-110) mg/dL Calcium 10.4 H (8.4-10.2) mg/dL Iron 19 L (65-175) UG/DL TIBC 197 L (228-460) UG/DL % Saturation 9.64 L (15.00-50.00) Transferrin 141.0 L (204.0-354.0) mg/dL Ferritin 884.0 H (22.0-322.0) ng/mL Urine Protein (Negative) Urine Glucose (UA) (Negative) Urine Blood (Negative) Urine Bacteria (None) /hpf Hyaline Casts (0-2) /lpf Urine Mucus (None) /hpf 01/29/23 01/29/23 01/29/23 Range/Units 11:29 14:12 16:50 WBC (3.8-10.6) k/uL RBC (4.30-5.90) m/uL Hgb (13.0-17.5) gm/dL Hct (39.0-53.0) % MCV (80.0-100.0) fL MCH (25.0-35.0) pg MCHC (31.0-37.0) g/dL RDW (11.5-15.5) % Neutrophils # (1.3-7.7) k/uL Sodium (137-145) mmol/L BUN (9-20) mg/dL Creatinine (0.66-1.25) mg/dL Glucose (74-99) mg/dL POC Glucose (mg/dL) 268 H 128 H (70-110) mg/dL Calcium (8.4-10.2) mg/dL Iron (65-175) UG/DL TIBC (228-460) UG/DL % Saturation (15.00-50.00) Transferrin (204.0-354.0) mg/dL Ferritin (22.0-322.0) ng/mL Urine Protein 1+ H (Negative) Urine Glucose (UA) 4+ H (Negative) Urine Blood Trace H (Negative) Urine Bacteria Rare H (None) /hpf Hyaline Casts 3 H (0-2) /lpf Urine Mucus Rare H (None) /hpf 01/29/23 01/30/23 01/30/23 Range/Units 20:11 07:52 07:52 WBC 13.0 H (3.8-10.6) k/uL RBC 3.96 L (4.30-5.90) m/uL Hgb 9.3 L (13.0-17.5) gm/dL Hct 31.2 L (39.0-53.0) % MCV 78.8 L (80.0-100.0) fL MCH 23.5 L (25.0-35.0) pg MCHC 29.8 L (31.0-37.0) g/dL RDW 16.8 H (11.5-15.5) % Neutrophils # 9.7 H (1.3-7.7) k/uL Sodium 147 H (137-145) mmol/L BUN 33 H (9-20) mg/dL Creatinine 1.97 H (0.66-1.25) mg/dL Glucose (74-99) mg/dL POC Glucose (mg/dL) 232 H (70-110) mg/dL Calcium (8.4-10.2) mg/dL Iron (65-175) UG/DL TIBC (228-460) UG/DL % Saturation (15.00-50.00) Transferrin (204.0-354.0) mg/dL Ferritin (22.0-322.0) ng/mL Urine Protein (Negative) Urine Glucose (UA) (Negative) Urine Blood (Negative) Urine Bacteria (None) /hpf Hyaline Casts (0-2) /lpf Urine Mucus (None) /hpf Assessment and Plan Plan: Assessment: 1. Acute kidney injury secondary to vasomotor nephropathy secondary to hypotension, hyperglycemia and PIERO inhibitor use. Renal function improving. Creatinine was 2.9 on admission and is 1.97 today. No hydronephrosis noted on kidney ultrasound. Bilateral kidney cysts present. 2. Chronic kidney disease stage IIIa with baseline creatinine 1.4-1.6 secondary to diabetic kidney disease. Serologies have been negative in the past. Patient did undergo kidney biopsy but was insufficient sample. Rebiopsy has been discussed with the patient. 3. Hyperkalemia secondary to acute kidney injury, and hyperglycemia. Resolved. 4. Hypernatremia from free water diuresis and lack of oral water intake. 5. Anemia of chronic kidney disease. Iron deficiency noted. 6. Diabetes mellitus. 7. Hypertension with chronic kidney disease. Controlled. 8. Chronic diastolic CHF with moderate tricuspid regurgitation. ?Cardiac mass versus vegetation noted. Plan: Maintain oral Lasix. Check chest x-ray. Hold amlodipine for systolic blood pressure less than 120. Add D5W at 50 mL an hour. Repeat labs in the morning.
--- NOTE | 2023-01-30 09:30 | XR ---
EXAMINATION TYPE: XR chest 1V DATE OF EXAM: 01/30/2023 COMPARISON: NONE HISTORY: 62 year-old male shortness of breath TECHNIQUE: Single frontal view of the chest is obtained. FINDINGS: There is no focal air space opacity, pleural effusion, or pneumothorax seen. The cardiac silhouette size is within normal limits. The osseous structures are intact. IMPRESSION: No acute process.
--- NOTE | 2023-01-30 10:37 | P.CRDCN ---
History of Present Illness History of present illness: HISTORY OF PRESENT ILLNESS: This is a 62-year-old male with a past medical history significant for hypertension, hyperlipidemia, diabetes, chronic kidney disease, and chronic debility (wheelchair-bound). Patient does not follow with a director of reservations. We have been asked to see the patient in consultation for abnormal echocardiogram. Patient examined at the bedside. Patient states he was called by his primary care physician secondary to abnormal lab work revealing worsening kidney function and hyperkalemia and instructed come to the emergency room. The patient also states he had 2 episodes of syncope prior to coming to the hospital. He states he was just walking when he passed out and lost consciousness. He states he had no warning signs that he was about to pass out. He states he has not had any previous episodes of syncope. He denied having any chest pain or shortness of breath. The patient states he was recently hospitalized at [facility] and was transferred to [facility] secondary to an abnormal echocardiogram. The patient underwent transthoracic echocardiogram at [facility] revealing large mobile serpiginous RV mass seen originating from the IVC to the RCA, and prolapsing into the RV, measuring greater than 6 cm x 1 cm. The patient underwent CODY at [facility] revealing preserved LV systolic function with large mass originating from the IVC prolapsing into the right atrium that could r epresent thrombus or tumor. The patient also underwent a renal ultrasound that revealed 2 solid masses on the right kidney. The patient states he had a kidney biopsy performed but is unsure where was performed or the results of it. Patient left [facility]. At the time of examination this morning, the patient denies any chest pain or pressure. He denies any shortness of breath. Denies any dizziness or lightheadedness. * EKG reveals sinus mechanism with early repolarization noted. No signs of acute ischemia. * Laboratory data: W BC 13.0. Hemoglobin 9.3. Platelet count 331. Sodium 147. Potassium 3.8. BUN 33. Creatinine 1.97. * Current home cardiac medications include lisinopril 10 mg daily, metoprolol tartrate 50 mg twice a day, amlodipine 10 mg daily, Lipitor 40 mg at night, a nd Lasix 20 mg twice a day * Repeat echocardiogram obtained this admission revealed ejection fraction 55- 60%, mobile thrombus originating in the right atrium and traveling across the tricuspid valve into the RV within each cardiac cycle and measures approximately 5.3 cm in length, and moderate tricuspid regurgitation. REVIEW OF SYSTEMS: At the time of my exam: CONSTITUTIONAL: Denies fever or chills. HEENT: Denies blurred vision, vision changes, or eye pain. Denies hemoptysis CARDIOVASCULAR: Denies chest pain. Denies orthopnea. Denies PND. Denies palpitations RESPIRATORY: Denies shortness of breath. GASTROINTESTINAL: Denies abdominal pain. Denies nausea or vomiting. HEMATOLOGIC: Denies bleeding disorders. GENITOURINARY: Denies any blood in urine. SKIN: Denies pruitis. Denies rash. PHYSICAL EXAM: VITAL SIGNS: Reviewed. GENERAL: Well-developed in no acute distress. HEENT: Head is normocephalic. Pupils are equal, round. Sclerae anicteric. Mucous membranes of the mouth are moist. Neck supple. No JVD or thyromegaly LUNGS: Respirations even and unlabored. Lungs essentially clear to auscultation bilaterally. HEART: Regular rate and rhythm. S1 and S2 heard. ABDOMEN: Soft. Nondistended. Nontender. EXTREMITIES: Normal range of motion. No clubbing or cyanosis. Peripheral pulses intact. No lower extremity edema NEUROLOGIC: Awake and alert. Oriented x 3. ASSESSMENT: Syncope Acute kidney injury Chronic kidney disease Renal mass, suspected renal cell carcinoma Hyperkalemia, resolved Intracardiac thrombus versus mass Hypertension Hyperlipidemia Diabetes Hyperglycemia PLAN: Continue current cardiac medications Lisinopril has been placed on hold secondary to kidney function Consult urology Further recommendations pending patient's course Nurse practitioner note has been reviewed by physician. Signing provider agrees with the documented findings, assessment, and plan of care. Past Medical History Past Medical History: Diabetes Mellitus, Hyperlipidemia, Hypertension Additional Past Medical History / Comment(s): was at [facility] on 01/22 and was told has a mass on the heart and right kidney History of Any Multi-Drug Resistant Organisms: None Reported Additional Past Surgical History / Comment(s): had CODY last week at [facility] Past Anesthesia/Blood Transfusion Reactions: No Reported Reaction Past Psychological History: No Psychological Hx Reported Smoking Status: Never smoker Past Drug Use History: None Reported - Past Family History Father Family Medical History: Hyperlipidemia Mother Family Medical History: Cancer Additional Family Medical History / Comment(s): leukemia Medications and Allergies Home Medications Medication Instructions Recorded Confirmed Type Atorvastatin [Lipitor] 40 mg PO HS 01/28/23 01/28/23 History Cholecalciferol [Vitamin D3 (25 50 mcg PO DAILY 01/28/23 01/28/23 History Mcg = 1000 Iu)] Empagliflozin [Jardiance] 25 mg PO DAILY 01/28/23 01/28/23 History Famotidine [Pepcid] 20 mg PO BID 01/28/23 01/28/23 History Ferrous Sulfate [Feosol] 325 mg PO BID 01/28/23 01/28/23 History Furosemide [Lasix] 20 mg PO BID 01/28/23 01/28/23 History Gabapentin 600 mg PO BID 01/28/23 01/28/23 History Insulin NPH/Reg Insulin 70/30 50 unit SQ AC-SUPPER 01/28/23 01/28/23 History [humuLIN 70/30 VIAL] Insulin NPH/Reg Insulin 70/30 60 units SQ AC-BRKFST 01/28/23 01/28/23 History [humuLIN 70/30 VIAL] Liraglutide [Victoza 2-Shree] 1.8 mg SQ DAILY@1200 01/28/23 01/28/23 History Magnesium Oxide [Magox 400] 400 mg PO DAILY 01/28/23 01/28/23 History Meloxicam [Mobic] 15 mg PO DAILY 01/28/23 01/28/23 History Metoprolol Tartrate [Lopressor] 50 mg PO BID 01/28/23 01/28/23 History allopurinoL [Zyloprim] 100 mg PO DAILY 01/28/23 01/28/23 History amLODIPine [Norvasc] 10 mg PO DAILY 01/28/23 01/28/23 History calcitrioL [Calcitriol] 0.5 mcg PO SUMOWEFR 01/28/23 01/28/23 History lisinopriL [Zestril] 10 mg PO DAILY 01/28/23 01/28/23 History metFORMIN HCL 1,000 mg PO BID 01/28/23 01/28/23 History traMADol HCL 100 mg PO Q8H PRN 01/28/23 01/28/23 History Allergies Allergy/AdvReac Type Severity Reaction Status Date / Time avocado Allergy Swelling Verified 01/28/23 17:25 Penicillins Allergy Rash/Hives Verified 01/28/23 17:25 Physical Exam Vitals: Vital Signs Temp Pulse Pulse Resp BP BP Pulse Ox 01/30/23 04:00 98.2 F 102 H 15 124/75 97 01/30/23 00:00 98 F 99 15 102/54 98 01/29/23 20:00 98.1 F 117 H 18 135/65 98 01/29/23 18:00 98.4 F 107 H 18 117/71 97 01/29/23 16:00 98.9 F 100 16 126/82 01/29/23 13:00 110/64 01/29/23 10:01 115 H 20 115/59 99 Intake and Output 01/29/23 01/30/23 01/30/23 22:59 06:59 14:59 Intake Total 658 Output Total 837 225 Balance 471 -746 -286 Intake: Oral 658 Output: Urine 625 225 Other: Voiding Method Urinal Urinal # Voids 1 2 1 Weight 113.398 kg Results 01/30/23 07:52 01/30/23 07:52 CBC 01/29/23 Range/Units 06:58 WBC 12.5 H (3.8-10.6) k/uL RBC 4.23 L (4.30-5.90) m/uL Hgb 10.1 L (13.0-17.5) gm/dL Hct 33.6 L (39.0-53.0) % Plt Count 352 (150-450) k/uL Comprehensive Metabolic Panel 01/29/23 Range/Units 06:58 Sodium 143 (137-145) mmol/L Potassium 4.5 (3.5-5.1) mmol/L Chloride 103 (98-107) mmol/L Carbon Dioxide 26 (22-30) mmol/L BUN 41 H (9-20) mg/dL Creatinine 2.44 H (0.66-1.25) mg/dL Glucose 258 H (74-99) mg/dL Calcium 10.4 H (8.4-10.2) mg/dL Current Medications Generic Name Dose Route Start Last Admin Trade Name Freq PRN Reason Stop Dose Admin Allopurinol 100 mg 01/29/23 09:00 01/29/23 09:58 Allopurinol 100 Mg Tab PO 100 mg DAILY SNOW Administration Amlodipine Besylate 5 mg 01/30/23 09:00 Amlodipine 5 Mg Tab PO DAILY [facility] Atorvastatin Calcium 40 mg 01/29/23 21:00 01/29/23 21:45 Atorvastatin 40 Mg Tab PO 40 mg HS SNOW Administration Famotidine 20 mg 01/29/23 21:00 01/29/23 21:46 Famotidine 20 Mg Tab PO 20 mg HS SNWO Administration Furosemide 20 mg 01/29/23 09:00 01/29/23 21:45 Furosemide 20 Mg Tab PO 20 mg BID SNOW Administration Gabapentin 600 mg 01/29/23 09:00 01/29/23 21:45 Gabapentin 300 Mg Cap PO 600 mg BID SNOW Administration Heparin Sodium (Porcine) 5,000 unit 01/30/23 00:00 01/29/23 23:56 Heparin Sodium,Porcine 5,000 Unit/Ml 1 Ml Vial SQ 5,000 unit Q8HR [facility] Administration Insulin Aspart 0 unit 01/29/23 07:30 01/30/23 06:13 Insulin Aspart (Novolog) 100 Unit/Ml Vial SQ Not Given ACHS [facility] Protocol Insulin Detemir 30 unit 01/29/23 21:00 01/30/23 07:44 Insulin Detemir (Levemir) 100 Unit/Ml Syr SQ Not Given BID@0700,2100 [facility] Metoprolol Tartrate 50 mg 01/29/23 09:00 01/29/23 21:46 Metoprolol Tartrate 50 Mg Tab PO 50 mg BID [facility] Administration Intake and Output 01/29/23 01/30/23 01/30/23 22:59 06:59 14:59 Intake Total 658 Output Total 625 225 Balance 772 -763 -128 Intake: Oral 658 Output: Urine 625 225 Other: Voiding Method Urinal Urinal # Voids 1 2 1 Weight 113.398 kg 01/29/23 06:58 01/29/23 06:58
[2023-01-30] MEDS ORDERED: AMIODARONE 200 MG TAB PO SCH (10:45)
[2023-01-30 11:26] LABS: Glucose,Whole Blood 138 mg/dL (70-110)
[2023-01-30] MEDS ORDERED: ZINC OXIDE PASTE (Z-GUARD) 1 APPLIC APPLIC TOPICAL PRN (11:37)
[2023-01-30] MEDS: DEXTROSE 5% IN WATER 1,000 ML IV SCH (11:39)
--- NOTE | 2023-01-30 12:42 | P.GSCN ---
History of Present Illness Consult date: 01/30/23 Reason for Consult: right renal mass History of present illness: This is a 62 -year-old male with a history of right-sided renal mass. He was i nitially admitted to [facility] last month, underwent a CT abdomen and pelvis that showed evidence of an 8 and a 4 cm right-sided renal mass, with evidence of a tumor thrombus. He subsequently underwent transesophageal echo that showed evidence of thrombus extending all the way up to the right ventricle. He was evaluated by urology at the [facility] and Was Subsequently Transferred to to [facility] for further evaluation. Patient left AMA, was unsure what was the final plan at [facility]. he denies any flank pain, gross hematuria or dysuria. No known family history of malignancy. Patient does have history of chronic kidney disease with a baseline creatinine of 1.6-1.8 and follows up with Dr. Tripathi as an outpatient. Review of Systems - Constitutional Denies fever, Denies weight loss - EENT Ears, nose, mouth and throat: Denies dysphagia - Cardiovascular Denies chest pain, Denies shortness of breath - Respiratory Reports dyspnea - Gastrointestinal Reports as per HPI - Integumentary Reports as per HPI - Neurological Denies headaches, Denies syncope Past Medical History Past Medical History: Diabetes Mellitus, Hyperlipidemia, Hypertension Additional Past Medical History / Comment(s): was at [facility] on 01/22 and was told has a mass on the heart and right kidney History of Any Multi-Drug Resistant Organisms: None Reported Additional Past Surgical History / Comment(s): had CODY last week at [facility] Past Anesthesia/Blood Transfusion Reactions: No Reported Reaction Past Psychological History: No Psychological Hx Reported Smoking Status: Never smoker Past Drug Use History: None Reported - Past Family History Father Family Medical History: Hyperlipidemia Mother Family Medical History: Cancer Additional Family Medical History / Comment(s): leukemia Medications and Allergies Home Medications Medication Instructions Recorded Confirmed Type Atorvastatin [Lipitor] 40 mg PO HS 01/28/23 01/28/23 History Cholecalciferol [Vitamin D3 (25 50 mcg PO DAILY 01/28/23 01/28/23 History Mcg = 1000 Iu)] Empagliflozin [Jardiance] 25 mg PO DAILY 01/28/23 01/28/23 History Famotidine [Pepcid] 20 mg PO BID 01/28/23 01/28/23 History Ferrous Sulfate [Feosol] 325 mg PO BID 01/28/23 01/28/23 History Furosemide [Lasix] 20 mg PO BID 01/28/23 01/28/23 History Gabapentin 600 mg PO BID 01/28/23 01/28/23 History Insulin NPH/Reg Insulin 70/30 50 unit SQ AC-SUPPER 01/28/23 01/28/23 History [humuLIN 70/30 VIAL] Insulin NPH/Reg Insulin 70/30 60 units SQ AC-BRKFST 01/28/23 01/28/23 History [humuLIN 70/30 VIAL] Liraglutide [Victoza 2-Shree] 1.8 mg SQ DAILY@1200 01/28/23 01/28/23 History Magnesium Oxide [Magox 400] 400 mg PO DAILY 01/28/23 01/28/23 History Meloxicam [Mobic] 15 mg PO DAILY 01/28/23 01/28/23 History Metoprolol Tartrate [Lopressor] 50 mg PO BID 01/28/23 01/28/23 History allopurinoL [Zyloprim] 100 mg PO DAILY 01/28/23 01/28/23 History amLODIPine [Norvasc] 10 mg PO DAILY 01/28/23 01/28/23 History calcitrioL [Calcitriol] 0.5 mcg PO SUMOWEFR 01/28/23 01/28/23 History lisinopriL [Zestril] 10 mg PO DAILY 01/28/23 01/28/23 History metFORMIN HCL 1,000 mg PO BID 01/28/23 01/28/23 History traMADol HCL 100 mg PO Q8H PRN 01/28/23 01/28/23 History Allergies Allergy/AdvReac Type Severity Reaction Status Date / Time avocado Allergy Swelling Verified 01/28/23 17:25 Penicillins Allergy Rash/Hives Verified 01/28/23 17:25 Surgical - Exam Vital Signs Temp Pulse Resp BP Pulse Ox 98.7 F 93 18 106/79 96 01/28/23 14:25 01/28/23 14:25 01/28/23 14:25 01/28/23 14:25 01/28/23 14:25 - General no distress, no pain - Eyes normal ocular movement, no pale - ENT normal nares, normal mucosa - Respiratory normal expansion, normal respiratory effort - Abdomen Abdomen: soft, non tender - Psychiatric oriented to time, oriented to person, oriented to place Results - Labs 01/30/23 07:52 01/30/23 07:52 Abnormal Lab Results - Last 24 Hours (Table) 01/29/23 01/29/23 01/29/23 Range/Units 14:12 16:50 20:11 WBC (3.8-10.6) k/uL RBC (4.30-5.90) m/uL Hgb (13.0-17.5) gm/dL Hct (39.0-53.0) % MCV (80.0-100.0) fL MCH (25.0-35.0) pg MCHC (31.0-37.0) g/dL RDW (11.5-15.5) % Neutrophils # (1.3-7.7) k/uL Sodium (137-145) mmol/L BUN (9-20) mg/dL Creatinine (0.66-1.25) mg/dL POC Glucose (mg/dL) 128 H 232 H (70-110) mg/dL Urine Protein 1+ H (Negative) Urine Glucose (UA) 4+ H (Negative) Urine Blood Trace H (Negative) Urine Bacteria Rare H (None) /hpf Hyaline Casts 3 H (0-2) /lpf Urine Mucus Rare H (None) /hpf 01/30/23 01/30/23 01/30/23 Range/Units 07:52 07:52 11:25 WBC 13.0 H (3.8-10.6) k/uL RBC 3.96 L (4.30-5.90) m/uL Hgb 9.3 L (13.0-17.5) gm/dL Hct 31.2 L (39.0-53.0) % MCV 78.8 L (80.0-100.0) fL MCH 23.5 L (25.0-35.0) pg MCHC 29.8 L (31.0-37.0) g/dL RDW 16.8 H (11.5-15.5) % Neutrophils # 9.7 H (1.3-7.7) k/uL Sodium 147 H (137-145) mmol/L BUN 33 H (9-20) mg/dL Creatinine 1.97 H (0.66-1.25) mg/dL POC Glucose (mg/dL) 138 H (70-110) mg/dL Urine Protein (Negative) Urine Glucose (UA) (Negative) Urine Blood (Negative) Urine Bacteria (None) /hpf Hyaline Casts (0-2) /lpf Urine Mucus (None) /hpf Diabetes panel 01/30/23 Range/Units 07:52 Sodium 147 H (137-145) mmol/L Potassium 3.8 (3.5-5.1) mmol/L Chloride 106 (98-107) mmol/L Carbon Dioxide 25 (22-30) mmol/L BUN 33 H (9-20) mg/dL Creatinine 1.97 H (0.66-1.25) mg/dL Glucose 91 (74-99) mg/dL Calcium 9.9 (8.4-10.2) mg/dL Calcium panel 01/30/23 Range/Units 07:52 Calcium 9.9 (8.4-10.2) mg/dL Pituitary panel 01/30/23 Range/Units 07:52 Sodium 147 H (137-145) mmol/L Potassium 3.8 (3.5-5.1) mmol/L Chloride 106 (98-107) mmol/L Carbon Dioxide 25 (22-30) mmol/L BUN 33 H (9-20) mg/dL Creatinine 1.97 H (0.66-1.25) mg/dL Glucose 91 (74-99) mg/dL Calcium 9.9 (8.4-10.2) mg/dL Adrenal panel 01/30/23 Range/Units 07:52 Sodium 147 H (137-145) mmol/L Potassium 3.8 (3.5-5.1) mmol/L Chloride 106 (98-107) mmol/L Carbon Dioxide 25 (22-30) mmol/L BUN 33 H (9-20) mg/dL Creatinine 1.97 H (0.66-1.25) mg/dL Glucose 91 (74-99) mg/dL Calcium 9.9 (8.4-10.2) mg/dL Assessment and Plan Assessment: this is a 62-year-old male with history of a right sided renal mass with tumor thrombus extending all the way up to the right ventricle,consistent with the level 4 thrombus. I had a prolonged discussion with him this is a critical situation and he does need evaluation at an academic center. if this is not addressed this is a life-threatening condition. He is already was transferred to [facility] last month and left AGAINST MEDICAL ADVICE. At this point he is agreeable for a transfer to [facility]. I discussed with him given the extensive involvement of the tumor thrombus this would require urology, and c ardiothoracic surgery and will required cardiopulmonary bypass. discussed this will need to be done in an academic center -Recommended transferring patient to a tertiary center for further evaluation
[2023-01-30 13:56] VITALS: BMI 33.9
--- NOTE | 2023-01-30 14:37 | P.PN ---
Subjective Progress Note Date: 01/30/23 Hospital Course: 62-year-old male with a PMH of type II DM, chronic debility (wheelchair bound), hypertension, hyperlipidemia, who was sent to the emergency room by his PCP for abnormal blood work. In the emergency room and EKG revealed sinus rhythm at [address]/T-wave changes noted as reviewed by me. Laboratory evaluation revealed a potassium of 6.1, glucose 650, creatinine 2.9 (baseline 1.6), glucose 650, anion gap 17, acetone negative, sodium 134, chloride 97, WBC count 11.7, and hemoglobin 9.6 (down from 13 in 01/2022). Patient admitted for acute kidney injury, uncontrolled type 2 diabetes with hyperglycemia, and hyperkalemia. Echo shows extremely mobile echodensity attached to the lower intra-arterial septum/tricuspid valve, mobile between the right atrium and right ventricle across the tricuspid valve, moderate tricuspid regurgitation. CODY on 01/07/23 showed large, mobile, serpiginous right atrial mass seen originating from the IVC to the right atrium and prolapsing into the RV measuring greater than 6 cm x 1 cm, with ultrasound also demonstrated 2 solid masses concerning for RCC, patient does have a family history of RCC, CT head and MRI brain and ulcerative sclera did not show any acute intracranial abnormalities, only chronic changes Subjective: Patient seen and examined at bedside. No acute events overnight. Pertinent positives and negatives as discussed above, a complete review of systems was performed and all other systems are negative. Vitals Signs Reviewed. General: Disheveled male, no distress, appears older than stated age, obese Derm: no unusual rashes/lesions, warm Head: atraumatic, normocephalic, symmetric Eyes: EOMI, no lid lag, anicteric sclera, pupils equal round reactive to light ENT: Nose and ears atraumatic Neck: No cervical lymphadenopathy, trachea midline, supple Mouth: no lip lesion, mucus membranes moist Cardiovascular: S1S2 reg, no murmur, positive dorsalis pedis pulse bilateral, 1+ bilateral lower extremity edema Lungs: CTA bilateral, no rhonchi, no rales, no accessory muscle use Abdominal: soft, nontender to palpation, no guarding Ext: muscle strength 4 out of 5 in all 4 extremities grossly, no gross muscle atrophy, no contractures, Neuro: CN II-XI grossly intact, no gross focal neuro deficits Psych: Alert, oriented, appropriate affect Data Reviewed Today: Pertinent Labs: WBC 13, 11) 3, creatinine 1.97, sodium 147, glucose range between 85-232 Imaging: Echo shows extremely mobile echodensity attached to the lower intra- arterial septum/tricuspid valve, mobile between the right atrium and right ventricle across the tricuspid valve, moderate tricuspid regurgitation. Assessment and Plan: Patient is critically ill. Needs tertiary care center evaulation. Will attempt to transfer to [facility]. Active: Large right atrial mass Renal masses Acute kidney injury on chronic kidney disease, improving Hyperkalemia, resolved Uncontrolled type 2 diabetes with hyperglycemia Leukocytosis Anemia of chronic disease -Nephrology note reviewed, started on D5 water at 50 mL an hour, also on oral Lasix 20 mg twice a day - On reduced dose of amlodipine at 5 mg daily -Renal function slightly improved -Urology note reviewed, patient should be transferred to tertiary care center -Levemir 30 units twice a day, sliding scale insulin, monitor for hypoglycemia -Blood cultures pending -Repeat CBC and BMP tomorrow Chronic: Hypertension Gout Neuropathy GERD DVT ppx: Subcu heparin Code status: Full code Anticipated discharge place: Pending clinical course Anticipated discharge time: Pending clinical course Objective - Vital Signs Vital signs: Vital Signs Temp 98.2 F 01/30/23 08:49 Pulse 102 H 01/30/23 13:25 Resp 15 01/30/23 11:20 BP 99/64 01/30/23 11:20 Pulse Ox 100 01/30/23 11:20 FiO2 Intake & Output 01/29/23 01/30/23 01/30/23 18:59 06:59 18:59 Intake Total 118 540 Output Total 625 425 Balance 118 -85 -425 Weight 113.398 kg 113.398 kg Intake: Oral 118 540 Output: Urine 625 425 Other: Voiding Method Urinal Urinal # Voids 2 1 - Labs CBC & Chem 7: 01/30/23 07:52 01/30/23 07:52 Labs: Abnormal Lab Results - Last 24 Hours (Table) 01/29/23 01/29/23 01/30/23 Range/Units 16:50 20:11 07:52 WBC 13.0 H (3.8-10.6) k/uL RBC 3.96 L (4.30-5.90) m/uL Hgb 9.3 L (13.0-17.5) gm/dL Hct 31.2 L (39.0-53.0) % MCV 78.8 L (80.0-100.0) fL MCH 23.5 L (25.0-35.0) pg MCHC 29.8 L (31.0-37.0) g/dL RDW 16.8 H (11.5-15.5) % Neutrophils # 9.7 H (1.3-7.7) k/uL Sodium (137-145) mmol/L BUN (9-20) mg/dL Creatinine (0.66-1.25) mg/dL POC Glucose (mg/dL) 128 H 232 H (70-110) mg/dL 01/30/23 01/30/23 Range/Units 07:52 11:25 WBC (3.8-10.6) k/uL RBC (4.30-5.90) m/uL Hgb (13.0-17.5) gm/dL Hct (39.0-53.0) % MCV (80.0-100.0) fL MCH (25.0-35.0) pg MCHC (31.0-37.0) g/dL RDW (11.5-15.5) % Neutrophils # (1.3-7.7) k/uL Sodium 147 H (137-145) mmol/L BUN 33 H (9-20) mg/dL Creatinine 1.97 H (0.66-1.25) mg/dL POC Glucose (mg/dL) 138 H (70-110) mg/dL
[2023-01-30 16:26] LABS: Glucose,Whole Blood 274 mg/dL (70-110)
[2023-01-30 20:10] LABS: Glucose,Whole Blood 281 mg/dL (70-110)
[2023-01-30] MEDS: ATORVASTATIN 40 MG TAB PO SCH (20:24)
[2023-01-30] MEDS: FAMOTIDINE 20 MG TAB PO SCH (20:24)
[2023-01-31 06:10] LABS: Glucose,Whole Blood 170 mg/dL (70-110)
[2023-01-31] MEDS: INSULIN ASPART (NovoLOG) 100 UNIT/ML VIAL SQ SCH ×3 (06:28→16:45)
[2023-01-31] MEDS: INSULIN DETEMIR (LEVEMIR) 100 UNIT/ML SYR SQ SCH (06:28)
[2023-01-31] MEDS: DEXTROSE 5% IN WATER 1,000 ML IV SCH (06:29)
[2023-01-31] MEDS: amLODIPine 5 MG TAB PO SCH (08:27)
[2023-01-31] MEDS: FUROSEMIDE 20 MG TAB PO SCH (08:28)
[2023-01-31] MEDS: METOPROLOL TARTRATE 50 MG TAB PO SCH (08:28)
[2023-01-31] MEDS: allopurinoL 100 MG TAB PO SCH (08:28)
[2023-01-31] MEDS: GABAPENTIN 300 MG CAP PO SCH (08:28)
[2023-01-31] MEDS: HEPARIN SODIUM,PORCINE 5,000 UNIT/ML 1 ML VIAL SQ SCH ×2 (08:28→16:45)
[2023-01-31 08:41] LABS: Anisocytosis Slight; Basophils # (A) 0.1 k/uL (0-0.2); Basophils % (A) 1 %; Eosinophils # (A) 0.3 k/uL (0-0.7); Eosinophils % (A) 3 %; HCT 30.5 % (39.0-53.0); Hypochromasia Marked; Lymphocytes # (A) 2.2 k/uL (1.0-4.8); Lymphocytes % (A) 19 %; MCH 23.5 pg (25.0-35.0); MCHC 29.6 g/dL (31.0-37.0); MCV 79.5 fL (80.0-100.0); Mean Platelet Volume 8.7; Microcytosis Slight; Monocytes # (A) 0.4 k/uL (0-1.0); Monocytes % (A) 4 %; Neutrophils # (A) 8.8 k/uL (1.3-7.7); Neutrophils % (A) 74 %; Platelet Count 302 k/uL (150-450); RBC 3.83 m/uL (4.30-5.90); RDW 16.8 % (11.5-15.5); WBC 11.9 k/uL (3.8-10.6)
[2023-01-31 08:54] LABS: African American GFR (CKD) 39 (>60 ml/min/1.73 sqM); Anion Gap 12 mmol/L; Blood Urea Nitrogen 33 mg/dL (9-20); Calcium 9.4 mg/dL (8.4-10.2); Carbon Dioxide 27 mmol/L (22-30); Chloride 100 mmol/L (98-107); Glucose 182 mg/dL (74-99); Non-African American GFR(CKD) 33 (>60 ml/min/1.73 sqM); Potassium 3.8 mmol/L (3.5-5.1); Sodium 139 mmol/L (137-145)
--- NOTE | 2023-01-31 11:19 | P.PN ---
Subjective Patient is seen in follow-up for acute kidney injury on chronic kidney disease. Renal function stable. Oral intake is good. Admits to good urine output. No vomiting or diarrhea. Vital signs are stable. General: No acute distress. HEENT: Head exam is unremarkable. LUNGS: No audible rhonchi or wheezes. HEART: Rate and Rhythm are regular. ABDOMEN: Nontender. EXTREMITITES: No edema. Objective - Vital Signs Vital signs: Vital Signs Temp 99.3 F 01/31/23 08:23 Pulse 107 H 01/31/23 08:34 Resp 16 01/31/23 08:23 BP 103/56 01/31/23 08:23 Pulse Ox 99 01/31/23 08:23 FiO2 Intake & Output 01/30/23 01/31/23 01/31/23 18:59 06:59 18:59 Intake Total 118 240 240 Output Total 425 350 Balance -307 -110 240 Weight 113.398 kg Intake: Oral 118 240 240 Output: Urine 425 350 Other: Voiding Method Urinal Urinal Urinal # Voids 2 1 - Labs CBC & Chem 7: 01/31/23 08:22 01/31/23 08:22 Labs: Abnormal Lab Results - Last 24 Hours (Table) 01/30/23 01/30/23 01/30/23 Range/Units 11:25 16:24 20:08 WBC (3.8-10.6) k/uL RBC (4.30-5.90) m/uL Hgb (13.0-17.5) gm/dL Hct (39.0-53.0) % MCV (80.0-100.0) fL MCH (25.0-35.0) pg MCHC (31.0-37.0) g/dL RDW (11.5-15.5) % Neutrophils # (1.3-7.7) k/uL BUN (9-20) mg/dL Creatinine (0.66-1.25) mg/dL Glucose (74-99) mg/dL POC Glucose (mg/dL) 138 H 274 H 281 H (70-110) mg/dL 01/31/23 01/31/23 01/31/23 Range/Units 06:08 08:22 08:22 WBC 11.9 H (3.8-10.6) k/uL RBC 3.83 L (4.30-5.90) m/uL Hgb 9.0 L (13.0-17.5) gm/dL Hct 30.5 L (39.0-53.0) % MCV 79.5 L (80.0-100.0) fL MCH 23.5 L (25.0-35.0) pg MCHC 29.6 L (31.0-37.0) g/dL RDW 16.8 H (11.5-15.5) % Neutrophils # 8.8 H (1.3-7.7) k/uL BUN 33 H (9-20) mg/dL Creatinine 2.09 H (0.66-1.25) mg/dL Glucose 182 H (74-99) mg/dL POC Glucose (mg/dL) 170 H (70-110) mg/dL Assessment and Plan Plan: Assessment: 1. Acute kidney injury secondary to vasomotor nephropathy secondary to hypotension, hyperglycemia and PIERO inhibitor use. Renal function improving. Creatinine was 2.9 on admission and is stable at 2.09 today. No hydronephrosis noted on kidney ultrasound. Bilateral kidney cysts present. 2. Chronic kidney disease stage IIIa with baseline creatinine 1.4-1.6 secondary to diabetic kidney disease. Serologies have been negative in the past. Patient did undergo kidney biopsy but was insufficient sample. Re-biopsy has been discussed with the patient. 3. Hyperkalemia secondary to acute kidney injury, and hyperglycemia. Resolved. 4. Hypernatremia from free water diuresis and lack of oral water intake. Imp roved with D5W. 5. Anemia of chronic kidney disease. Iron deficiency noted. 6. Diabetes mellitus. 7. Hypertension with chronic kidney disease. Blood pressure on the lower side. 8. Chronic diastolic CHF with moderate tricuspid regurgitation. 9. Right renal mass with tumor thrombus extending up to the right ventricle. Seen by cardiology and urology. Awaits transfer to tertiary care center if agreeable. Plan: Maintain oral Lasix. No evidence of fluid overload on chest x-ray. Hold amlodipine for systolic blood pressure less than 120. Stop D5W. Repeat labs in the morning.
[2023-01-31] MEDS ORDERED: MAGNESIUM OXIDE 400 MG TAB PO SCH (11:30)
--- NOTE | 2023-01-31 11:30 | P.PN ---
Subjective Progress Note Date: 01/31/23 Hospital Course: 62-year-old male with a PMH of type II DM, chronic debility (wheelchair bound), hypertension, hyperlipidemia, who was sent to the emergency room by his PCP for abnormal blood work. In the emergency room and EKG revealed sinus rhythm at [address]/T-wave changes noted as reviewed by me. Laboratory evaluation revealed a potassium of 6.1, glucose 650, creatinine 2.9 (baseline 1.6), glucose 650, anion gap 17, acetone negative, sodium 134, chloride 97, WBC count 11.7, an d hemoglobin 9.6 (down from 13 in 01/2022). Patient admitted for acute kidney injury, uncontrolled type 2 diabetes with hyperglycemia, and hyperkalemia. Echo shows extremely mobile echodensity attached to the lower intra-arterial septum/tricuspid valve, mobile between the right atrium and right ventricle across the tricuspid valve, moderate tricuspid regurgitation. CODY on 01/07/23 showed large, mobile, serpiginous right atrial mass seen originating from the IVC to the right atrium and prolapsing into the RV measuring greater than 6 cm x 1 cm, with ultrasound also demonstrated 2 solid masses concerning for RCC, patient does have a family history of RCC, CT head and MRI brain and ulcerative sclera did not show any acute intracranial abnormalities, only chronic changes Patient is now agreeable to transfer back to [facility]. We will coordinate transfer. Subjective: Patient seen and examined at bedside. No acute events overnight. Denies any chest pain, shortness of breath, abdominal pain, urinary or bowel complaints. Pertinent positives and negatives as discussed above, a complete review of systems was performed and all other systems are negative. Vitals Signs Reviewed. General: Disheveled male, no distress, appears older than stated age, obese Derm: no unusual rashes/lesions, warm Head: atraumatic, normocephalic, symmetric Eyes: EOMI, no lid lag, anicteric sclera, pupils equal round reactive to light ENT: Nose and ears atraumatic Neck: No cervical lymphadenopathy, trachea midline, supple Mouth: no lip lesion, mucus membranes moist Cardiovascular: S1S2 reg, no murmur, positive dorsalis pedis pulse bilateral, 1+ bilateral lower extremity edema Lungs: CTA bilateral, no rhonchi, no rales, no accessory muscle use Abdominal: soft, nontender to palpation, no guarding Ext: muscle strength 4 out of 5 in all 4 extremities grossly, no gross muscle atrophy, no contractures, Neuro: CN II-XI grossly intact, no gross focal neuro deficits Psych: Alert, oriented, appropriate affect Data Reviewed Today: Pertinent Labs: WBC 11.9, hemoglobin 9, creatinine 2.09, sodium 139, blood sugars range between 170-182, magnesium 1.6 Imaging: No new imaging Assessment and Plan: Patient is critically ill. Needs tertiary care center evaulation. We'll attempt transfer to refer to [facility]. Active: Large right atrial mass Renal masses Acute kidney injury on chronic kidney disease, stable Hyperkalemia, resolved Uncontrolled type 2 diabetes with hyperglycemia Leukocytosis, improving Anemia of chronic disease -Nephrology note reviewed, discontinued IV fluids, continue Lasix 20 mg twice a day oral -On reduced dose of amlodipine at 5 mg daily -Renal function currently stable -Urology following, patient should be transferred to tertiary care center -Levemir 30 units twice a day, sliding scale insulin, monitor for hypoglycemia -Blood cultures pending -Repeat CBC and BMP tomorrow -Likely also has iron deficiency anemia, patient started on IV iron per nephrology Chronic: Hypertension Gout Neuropathy GERD DVT ppx: Subcu heparin Code status: Full code Anticipated discharge place: Pending clinical course Anticipated discharge time: Pending clinical course Objective - Vital Signs Vital signs: Vital Signs Temp 99.3 F 01/31/23 08:23 Pulse 94 01/31/23 11:29 Resp 16 01/31/23 11:29 BP 91/48 01/31/23 11:29 Pulse Ox 95 01/31/23 11:29 FiO2 Intake & Output 01/30/23 01/31/23 01/31/23 18:59 06:59 18:59 Intake Total 118 240 240 Output Total 425 350 Balance -307 -110 240 Weight 113.398 kg Intake: Oral 118 240 240 Output: Urine 425 350 Other: Voiding Method Urinal Urinal Urinal # Voids 2 1 - Labs CBC & Chem 7: 01/31/23 08:22 01/31/23 08:22 Labs: Abnormal Lab Results - Last 24 Hours (Table) 01/30/23 01/30/23 01/31/23 Range/Units 16:24 20:08 06:08 WBC (3.8-10.6) k/uL RBC (4.30-5.90) m/uL Hgb (13.0-17.5) gm/dL Hct (39.0-53.0) % MCV (80.0-100.0) fL MCH (25.0-35.0) pg MCHC (31.0-37.0) g/dL RDW (11.5-15.5) % Neutrophils # (1.3-7.7) k/uL BUN (9-20) mg/dL Creatinine (0.66-1.25) mg/dL Glucose (74-99) mg/dL POC Glucose (mg/dL) 274 H 281 H 170 H (70-110) mg/dL 01/31/23 01/31/23 Range/Units 08:22 08:22 WBC 11.9 H (3.8-10.6) k/uL RBC 3.83 L (4.30-5.90) m/uL Hgb 9.0 L (13.0-17.5) gm/dL Hct 30.5 L (39.0-53.0) % MCV 79.5 L (80.0-100.0) fL MCH 23.5 L (25.0-35.0) pg MCHC 29.6 L (31.0-37.0) g/dL RDW 16.8 H (11.5-15.5) % Neutrophils # 8.8 H (1.3-7.7) k/uL BUN 33 H (9-20) mg/dL Creatinine 2.09 H (0.66-1.25) mg/dL Glucose 182 H (74-99) mg/dL POC Glucose (mg/dL) (70-110) mg/dL
[2023-01-31 11:36] LABS: Glucose,Whole Blood 212 mg/dL (70-110)
[2023-01-31] MEDS ORDERED: SODIUM FERRIC GLUCONAT-SUCROSE 125 MG in SODIUM CHLORIDE 0.9% 100 ML IVPB SCH (12:00)
--- NOTE | 2023-01-31 13:33 | P.PN ---
Subjective Progress Note Date: 01/31/23 PROGRESS NOTE The patient is a 62-year-old male with a history of chronic kidney disease, diabetes who was recently found to have a mass in the right atrium extending from the inferior vena cava with evidence consistent with renal cell carcinoma. He was at [facility] for further evaluation but subsequently signed out AMA. He's feeling well this morning, he denies any chest discomfort, dizziness or palpitations. He was evaluated by the urology and the nephrology service and recommendation is to transfer to tertiary care center. Medications: Amlodipine 5 mg daily, metoprolol 50 mg twice a day, Lipitor 40 mg daily, Lasix 20 mg daily, insulin, magnesium PHYSICAL EXAMINATION: Blood pressure 103/60 heart rate 9 LUNGS: Clear to auscultation HEART: Regular rate and rhythm, S1, S2. No S3. Systolic ejection murmur ABDOMEN: Soft, nontender, no organomegaly EXTREMETIES: Trace to 1+ edema LAB: Hemoglobin 9, BUN 23, creatinine 2.09 IMPRESSION: 1. Renal cell carcinoma with extending mass in the right atrium and inferior vena cava 2. History of diabetes 3. History of hyperlipidemia 4. Chronic kidney disease PLAN: 1. Stop amlodipine because of borderline blood pressure 2. Continue beta jeffry and statin 3. Awaiting decision about transfer to tertiary care center for further inte rvention 4. Depending on his progress further recommendations will be made Objective - Vital Signs Vital signs: Vital Signs Temp 99.3 F 01/31/23 08:23 Pulse 94 01/31/23 11:29 Resp 16 01/31/23 11:29 BP 91/48 01/31/23 11:29 Pulse Ox 95 01/31/23 11:29 FiO2 Intake & Output 01/30/23 01/31/23 01/31/23 18:59 06:59 18:59 Intake Total 118 240 240 Output Total 425 350 250 Balance -307 -110 -10 Weight 113.398 kg Intake: Oral 118 240 240 Output: Urine 425 350 250 Other: Voiding Method Urinal Urinal Urinal # Voids 2 1 - Labs CBC & Chem 7: 01/31/23 08:22 01/31/23 08:22 Labs: Abnormal Lab Results - Last 24 Hours (Table) 01/30/23 01/30/23 01/31/23 Range/Units 16:24 20:08 06:08 WBC (3.8-10.6) k/uL RBC (4.30-5.90) m/uL Hgb (13.0-17.5) gm/dL Hct (39.0-53.0) % MCV (80.0-100.0) fL MCH (25.0-35.0) pg MCHC (31.0-37.0) g/dL RDW (11.5-15.5) % Neutrophils # (1.3-7.7) k/uL BUN (9-20) mg/dL Creatinine (0.66-1.25) mg/dL Glucose (74-99) mg/dL POC Glucose (mg/dL) 274 H 281 H 170 H (70-110) mg/dL 01/31/23 01/31/23 01/31/23 Range/Units 08:22 08:22 11:35 WBC 11.9 H (3.8-10.6) k/uL RBC 3.83 L (4.30-5.90) m/uL Hgb 9.0 L (13.0-17.5) gm/dL Hct 30.5 L (39.0-53.0) % MCV 79.5 L (80.0-100.0) fL MCH 23.5 L (25.0-35.0) pg MCHC 29.6 L (31.0-37.0) g/dL RDW 16.8 H (11.5-15.5) % Neutrophils # 8.8 H (1.3-7.7) k/uL BUN 33 H (9-20) mg/dL Creatinine 2.09 H (0.66-1.25) mg/dL Glucose 182 H (74-99) mg/dL POC Glucose (mg/dL) 212 H (70-110) mg/dL
--- NOTE | 2023-01-31 16:08 | P.DS ---
Providers Date of admission: 01/28/23 20:13 Expected date of discharge: 01/31/23 Attending physician: Nella Beard MD Consults: 01/28/23 23:40 Consult Physician Urgent Consulting Provider: Isaias Tripathi Consult Reason/Comments: PASCUAL on CKD Do you want consulting provider notified?: Yes 01/29/23 19:52 Consult Physician Urgent Consulting Provider: Rupert Jaimes Consult Reason/Comments: intracardiac mobile mass Do you want consulting provider notified?: Yes 01/30/23 10:35 Consult Physician Routine Consulting Provider: Francis Velazquez Consult Reason/Comments: renal mass Do you want consulting provider notified?: Yes Primary care physician: [facility] Course: Patient has a bed at [facility]. Being transferred today. Please see the progress note for further details. Patient Condition at Discharge: Fair Plan - Discharge Summary Discharge Rx Participant: No New Discharge Prescriptions: No Action allopurinoL [Zyloprim] 100 mg PO DAILY amLODIPine [Norvasc] 10 mg PO DAILY calcitrioL [Calcitriol] 0.5 mcg PO SUMOWEFR Cholecalciferol [Vitamin D3 (25 Mcg = 1000 Iu)] 50 mcg PO DAILY Ferrous Sulfate [Feosol] 325 mg PO BID Furosemide [Lasix] 20 mg PO BID Insulin NPH/Reg Insulin 70/30 [humuLIN 70/30 VIAL] 50 unit SQ AC-SUPPER Liraglutide [Victoza 2-Shree] 1.8 mg SQ DAILY@1200 lisinopriL [Zestril] 10 mg PO DAILY traMADol HCL 100 mg PO Q8H PRN PRN Reason: Pain Atorvastatin [Lipitor] 40 mg PO HS Empagliflozin [Jardiance] 25 mg PO DAILY Famotidine [Pepcid] 20 mg PO BID Gabapentin 600 mg PO BID Insulin NPH/Reg Insulin 70/30 [humuLIN 70/30 VIAL] 60 units SQ AC-BRKFST Magnesium Oxide [Magox 400] 400 mg PO DAILY Meloxicam [Mobic] 15 mg PO DAILY metFORMIN HCL 1,000 mg PO BID Metoprolol Tartrate [Lopressor] 50 mg PO BID Discharge Medication List Atorvastatin [Lipitor] 40 mg PO HS 01/28/23 [History] Cholecalciferol [Vitamin D3 (25 Mcg = 1000 Iu)] 50 mcg PO DAILY 01/28/23 [History] Empagliflozin [Jardiance] 25 mg PO DAILY 01/28/23 [History] Famotidine [Pepcid] 20 mg PO BID 01/28/23 [History] Ferrous Sulfate [Feosol] 325 mg PO BID 01/28/23 [History] Furosemide [Lasix] 20 mg PO BID 01/28/23 [History] Gabapentin 600 mg PO BID 01/28/23 [History] Insulin NPH/Reg Insulin 70/30 [humuLIN 70/30 VIAL] 50 unit SQ AC-SUPPER 01/28/23 [History] Insulin NPH/Reg Insulin 70/30 [humuLIN 70/30 VIAL] 60 units SQ AC-BRKFST 01/28/23 [History] Liraglutide [Victoza 2-Shree] 1.8 mg SQ DAILY@1200 01/28/23 [History] Magnesium Oxide [Magox 400] 400 mg PO DAILY 01/28/23 [History] Meloxicam [Mobic] 15 mg PO DAILY 01/28/23 [History] Metoprolol Tartrate [Lopressor] 50 mg PO BID 01/28/23 [History] allopurinoL [Zyloprim] 100 mg PO DAILY 01/28/23 [History] amLODIPine [Norvasc] 10 mg PO DAILY 01/28/23 [History] calcitrioL [Calcitriol] 0.5 mcg PO SUMOWEFR 01/28/23 [History] lisinopriL [Zestril] 10 mg PO DAILY 01/28/23 [History] metFORMIN HCL 1,000 mg PO BID 01/28/23 [History] traMADol HCL 100 mg PO Q8H PRN 01/28/23 [History] Follow up Appointment(s)/Referral(s): Sarah Owusu MD [Primary Care Provider] - 1-2 days
[2023-01-31 16:26] VITALS: BP 127/70; PULSE 98; RESP 17; TEMP 99.8
[2023-01-31 16:30] LABS: Glucose,Whole Blood 215 mg/dL (70-110)
== END 2023-01-31 18:30 | disposition short-term general hospital (02) | DRG 461 ==
LOC: EC 14:24 → 3SCARD 20:13
PROVIDERS: ADMIT Internal Medicine; ATTEND Internal Medicine
DX: C64.9 Malignant neoplasm of unspecified kidney, except renal pelvis (principal); C79.89 Secondary malignant neoplasm of other specified sites; D63.1 Anemia in chronic kidney disease; D50.9 Iron deficiency anemia, unspecified; E11.22 Type 2 diabetes mellitus with diabetic chronic kidney disease; N17.0 Acute kidney failure with tubular necrosis; E11.65 Type 2 diabetes mellitus with hyperglycemia; Z79.4 Long term (current) use of insulin; I95.9 Hypotension, unspecified; I13.0 Hypertensive heart and chronic kidney disease with heart failure and stage 1 through stage 4 chronic kidney disease, or unspecified chronic kidney disease; Z79.84 Long term (current) use of oral hypoglycemic drugs; I50.32 Chronic diastolic (congestive) heart failure; E78.5 Hyperlipidemia, unspecified; E87.5 Hyperkalemia; E11.42 Type 2 diabetes mellitus with diabetic polyneuropathy; I07.1 Rheumatic tricuspid insufficiency; K21.9 Gastro-esophageal reflux disease without esophagitis; M10.9 Gout, unspecified; N18.31 Chronic kidney disease, stage 3a; Z79.1 Long term (current) use of non-steroidal anti-inflammatories (NSAID); Z79.899 Other long term (current) drug therapy; Z80.6 Family history of leukemia; Z99.3 Dependence on wheelchair; R53.81 Other malaise; Z88.0 Allergy status to penicillin; N28.1 Cyst of kidney, acquired
CPT/HCPCS: 36415; 71045; 76770; 80048; 80053; 81001; 82009; 82607; 82728; 82747; 83540; 83550; 83735; 85025; 93005; 93306; 96361; 96372; 96374; 96375; 99285

== ENCOUNTER 2023-02-08 13:08 | Inpatient (IN) | payer OTHER ==
[2023-02-08] MEDS ORDERED: SODIUM CHLORIDE 0.9% 500 ML 500 ML IV STA (13:25)
--- NOTE | 2023-02-08 13:28 | ED ---
General Adult HPI - General Chief complaint: Weakness Stated complaint: Weakness Time Seen by Provider: 02/08/23 13:13 Source: patient, EMS, RN notes reviewed, old records reviewed Mode of arrival: EMS Limitations: no limitations - History of Present Illness Initial comments: 62-year-old male with recent diagnosis of renal cell carcinoma extending into the IVC and right atrium presenting with generalized weakness. Patient states he was seen at this facility and transferred to [facility] for further evaluation treatment. He states he is uncertain plan with his recent diagnosis. He denies any recent biopsy or procedure. Patient denies chest pain. Denies fever. Denies abdominal pain. Reports global weakness. - Related Data Home Medications Medication Instructions Recorded Confirmed Atorvastatin [Lipitor] 40 mg PO HS 01/28/23 02/08/23 Cholecalciferol [Vitamin D3 (25 50 mcg PO DAILY 01/28/23 02/08/23 Mcg = 1000 Iu)] Empagliflozin [Jardiance] 25 mg PO DAILY 01/28/23 02/08/23 Famotidine [Pepcid] 20 mg PO BID 01/28/23 02/08/23 Ferrous Sulfate [Feosol] 325 mg PO BID 01/28/23 02/08/23 Furosemide [Lasix] 20 mg PO BID 01/28/23 02/08/23 Gabapentin 600 mg PO BID 01/28/23 02/08/23 Insulin NPH/Reg Insulin 70/30 50 unit SQ AC-SUPPER 01/28/23 02/08/23 [humuLIN 70/30 VIAL] Insulin NPH/Reg Insulin 70/30 60 units SQ AC-BRKFST 01/28/23 02/08/23 [humuLIN 70/30 VIAL] Liraglutide [Victoza 2-Shree] 1.8 mg SQ DAILY@1200 01/28/23 02/08/23 Magnesium Oxide [Magox 400] 400 mg PO DAILY 01/28/23 02/08/23 Meloxicam [Mobic] 15 mg PO DAILY 01/28/23 02/08/23 Metoprolol Tartrate [Lopressor] 50 mg PO BID 01/28/23 02/08/23 allopurinoL [Zyloprim] 100 mg PO DAILY 01/28/23 02/08/23 amLODIPine [Norvasc] 10 mg PO DAILY 01/28/23 02/08/23 calcitrioL [Calcitriol] 0.5 mcg PO SUMOWEFR 01/28/23 02/08/23 lisinopriL [Zestril] 10 mg PO DAILY 01/28/23 02/08/23 metFORMIN HCL 1,000 mg PO BID 01/28/23 02/08/23 traMADol HCL 100 mg PO Q8H PRN 01/28/23 02/08/23 Rivaroxaban [Xarelto] 20 mg PO DIRECTED 02/08/23 02/08/23 Allergies Allergy/AdvReac Type Severity Reaction Status Date / Time avocado Allergy Swelling Verified 02/08/23 14:27 Penicillins Allergy Rash/Hives Verified 02/08/23 14:27 Review of Systems ROS Statement: Those systems with pertinent positive or pertinent negative responses have been documented in the HPI. ROS Other: All systems not noted in ROS Statement are negative. Past Medical History Past Medical History: Cancer, Diabetes Mellitus, Hyperlipidemia, Hypertension Additional Past Medical History / Comment(s): was at [facility] on 01/22 and was told has a mass on the heart and right kidney History of Any Multi-Drug Resistant Organisms: None Reported Additional Past Surgical History / Comment(s): had CODY last week at [facility] Past Anesthesia/Blood Transfusion Reactions: No Reported Reaction Past Psychological History: No Psychological Hx Reported Smoking Status: Never smoker Past Drug Use History: None Reported - Past Family History Father Family Medical History: Hyperlipidemia Mother Family Medical History: Cancer Additional Family Medical History / Comment(s): leukemia General Exam Limitations: no limitations General appearance: alert, in no apparent distress Head exam: Present: atraumatic, normocephalic Eye exam: Present: normal appearance, PERRL ENT exam: Present: normal exam Neck exam: Present: normal inspection. Absent: tenderness, meningismus Respiratory exam: Present: decreased breath sounds. Absent: respiratory distress Cardiovascular Exam: Present: normal rhythm, tachycardia GI/Abdominal exam: Present: soft. Absent: distended, tenderness Extremities exam: Present: pedal edema Neurological exam: Present: alert, CN II-XII intact. Absent: motor sensory deficit Psychiatric exam: Present: normal affect, normal mood Course Vital Signs 02/08/23 02/08/23 13:11 15:24 Temperature 99.3 F Pulse Rate 117 H 112 H Respiratory 18 20 Rate Blood Pressure 119/70 113/72 O2 Sat by Pulse 98 95 Oximetry - Reevaluation(s) Reevaluation #1: 02/08/23 1600 Further history obtained from the patient's brother who states that he believes that the patient was diagnosed with terminal cancer and that there was no further treatment planned. The patient has refused medical records from [facility] so I cannot confirm this. Reevaluation #2: 02/08/23 17:15 Patient continues to refuse the records requested from [facility] And wishes to be discharged. Reevaluation #3: 02/08/23 17:46 Patient's brother has convinced him to stay and the patient will allow records from [facility]. These records have been requested. Medical Decision Making - Medical Decision Making Was pt. sent in by a medical professional or institution (, PA, CLUB LOUNGE ATTENDANT, urgent care, hospital, or [facility]...) When possible be specific @ -No Did you speak to anyone other than the patient for history (EMS, parent, family, police, friend...)? What history was obtained from this source @ -[Brother Did you review nursing and triage notes (agree or disagree)? Why? @ -I reviewed and agree with nursing and triage notes Were old charts reviewed (outside hosp., previous admission, EMS record, old EKG, old radiological studies, urgent care reports/EKG's, [facility] records)? Report findings @ -No old charts were reviewed Differential Diagnosis (chest pain, altered mental status, abdominal pain women, abdominal pain men, vaginal bleeding, weakness, fever, dyspnea, syncope, headache, dizziness, GI bleed, back pain, seizure, CVA, palpatations, mental health, musculoskeletal)? @Differential Weakness: Hypoglycemia, shock, sepsis, hyponatremia, anemia, infection, VA, ETOH, adverse medicine reaction, overdose, stroke, this is not meant to be an all-inclusive list. EKG interpreted by me (3pts min.). @Sinus tachycardia rate of 1:15, HI interval 169, QRS duration 85, QTC 4:[address] segment elevation. X-rays interpreted by me (1pt min.). @ -[X-ray showing mild CHF CT interpreted by me (1pt min.). @ -None done U/S interpreted by me (1pt. min.). @ -None done What testing was considered but not performed or refused? (CT, X-rays, U/S, labs)? Why? @ -None What meds were considered but not given or refused? Why? @ -None Did you discuss the management of the patient with other professionals (professionals i.e. , PA, CLUB LOUNGE ATTENDANT, lab, RT, psych nurse, social work lecturer, material control analyst, teacher, transit authority police officer, case management director)? Give summary @ -[Dr. Coffman Was smoking cessation discussed for >3mins.? @ -No Was critical care preformed (if so, how long)? @ -No Were there social determinants of health that impacted care today? How? (Homelessness, low income, unemployed, alcoholism, drug addiction, transportation, low edu. Level, literacy, decrease access to med. care, alf, rehab)? @ -No Was there de-escalation of care discussed even if they declined (Discuss DNR or withdrawal of care, Hospice)? DNR status @ -No What co-morbidities impacted this encounter? (DM, HTN, Smoking, COPD, CAD, Cancer, CVA, ARF, Chemo, Hep., AIDS, mental health diagnosis, sleep apnea, m orbid obesity)? @ Renal Cell carcinoma Was patient admitted / discharged? Hospital course, mention meds given and route, prescriptions, significant lab abnormalities, going to OR and other pertinent info. @ -62-year-old male with multiple falls, generalized weakness. Patient recently discharged from [facility]. The exact details of this admission are known. He was found to have patient renal cell carcinoma on recent admission and was transferred to [facility] for evaluation. The patient is reluctant to give details of this admission. He has been home for several days and has fallen on multiple occasions requiring EMS lift assist. Patient denies traumatic injury from these falls. He's found to be anemic itches worsening. His kidney function is worsening with an elevated BUN/creatinine. After multiple attempts to obtain records the patient does finally allow records to be obtained from [place] [id number]. These have been requested and are pending. He also agrees to admission at this time. If in fact there is no treatment plan for his cancer it would be appropriate to discuss hospice and comfort measures at that time. Undiagnosed new problem with uncertain prognosis? @ -No Drug Therapy requiring intensive monitoring for toxicity (Heparin, Nitro, Insulin, Cardizem)? @ -No Were any procedures done? @ -No Diagnosis/symptom? @ Renal cell carcinoma, multiple falls, generalized weakness, acute on chronic renal failure Acute, or Chronic, or Acute on Chronic? @ -Chronic Uncomplicated (without systemic symptoms) or Complicated (systemic symptoms)? @ Complicated Side effects of treatment? @ -No Exacerbation, Progression, or Severe Exacerbation? @ -No Poses a threat to life or bodily function? How? (Chest pain, USA, VA, pneumonia, PE, COPD, DKA, ARF, appy, cholecystitis, CVA, Diverticulitis, Homicidal, Suicidal, threat to staff... and all critical care pts) @ Yes, cancer, worsening kidney function - Lab Data Result diagrams: 02/08/23 13:51 02/08/23 13:51 Lab Results 02/08/23 02/08/23 02/08/23 Range/Units 13:51 13:51 13:51 WBC 7.2 (3.8-10.6) k/uL RBC 3.41 L (4.30-5.90) m/uL Hgb 8.2 L (13.0-17.5) gm/dL Hct 26.5 L (39.0-53.0) % MCV 78.0 L (80.0-100.0) fL MCH 24.0 L (25.0-35.0) pg MCHC 30.8 L (31.0-37.0) g/dL RDW 16.6 H (11.5-15.5) % Plt Count 322 (150-450) k/uL MPV 7.7 Neutrophils % 82 % Lymphocytes % 11 % Monocytes % 4 % Eosinophils % 2 % Basophils % 1 % Neutrophils # 5.9 (1.3-7.7) k/uL Lymphocytes # 0.8 L (1.0-4.8) k/uL Monocytes # 0.3 (0-1.0) k/uL Eosinophils # 0.1 (0-0.7) k/uL Basophils # 0.0 (0-0.2) k/uL Hypochromasia Marked Anisocytosis Slight Microcytosis Slight PT (10.0-12.5) sec INR (<1.2) APTT (22.0-30.0) sec Sodium 134 L (137-145) mmol/L Potassium 5.1 (3.5-5.1) mmol/L Chloride 98 (98-107) mmol/L Carbon Dioxide 19 L (22-30) mmol/L Anion Gap 17 mmol/L BUN 57 H (9-20) mg/dL Creatinine 5.09 H (0.66-1.25) mg/dL Est GFR (CKD-EPI)AfAm 13 (>60 ml/min/1.73 sqM) Est GFR (CKD-EPI)NonAf 11 (>60 ml/min/1.73 sqM) Glucose 278 H (74-99) mg/dL Plasma Lactic Acid Toro 1.3 (0.7-2.0) mmol/L Calcium 8.8 (8.4-10.2) mg/dL Magnesium 2.3 (1.6-2.3) mg/dL Total Bilirubin 0.6 (0.2-1.3) mg/dL AST 21 (17-59) U/L ALT 12 (4-49) U/L Alkaline Phosphatase 218 H (38-126) U/L Troponin I (0.000-0.034) ng/mL Total Protein 7.1 (6.3-8.2) g/dL Albumin 3.3 L (3.5-5.0) g/dL 02/08/23 02/08/23 Range/Units 13:51 14:31 WBC (3.8-10.6) k/uL RBC (4.30-5.90) m/uL Hgb (13.0-17.5) gm/dL Hct (39.0-53.0) % MCV (80.0-100.0) fL MCH (25.0-35.0) pg MCHC (31.0-37.0) g/dL RDW (11.5-15.5) % Plt Count (150-450) k/uL MPV Neutrophils % % Lymphocytes % % Monocytes % % Eosinophils % % Basophils % % Neutrophils # (1.3-7.7) k/uL Lymphocytes # (1.0-4.8) k/uL Monocytes # (0-1.0) k/uL Eosinophils # (0-0.7) k/uL Basophils # (0-0.2) k/uL Hypochromasia Anisocytosis Microcytosis PT 10.6 (10.0-12.5) sec INR 1.0 (<1.2) APTT 27.9 (22.0-30.0) sec Sodium (137-145) mmol/L Potassium (3.5-5.1) mmol/L Chloride (98-107) mmol/L Carbon Dioxide (22-30) mmol/L Anion Gap mmol/L BUN (9-20) mg/dL Creatinine (0.66-1.25) mg/dL Est GFR (CKD-EPI)AfAm (>60 ml/min/1.73 sqM) Est GFR (CKD-EPI)NonAf (>60 ml/min/1.73 sqM) Glucose (74-99) mg/dL Plasma Lactic Acid Toro (0.7-2.0) mmol/L Calcium (8.4-10.2) mg/dL Magnesium (1.6-2.3) mg/dL Total Bilirubin (0.2-1.3) mg/dL AST (17-59) U/L ALT (4-49) U/L Alkaline Phosphatase (38-126) U/L Troponin I <0.012 (0.000-0.034) ng/mL Total Protein (6.3-8.2) g/dL Albumin (3.5-5.0) g/dL Disposition Clinical Impression: Renal mass, Cardiac mass, Acute kidney injury Disposition: ADMITTED IP TO THIS HOSP Condition: Serious Is patient prescribed a controlled substance at d/c from ED?: No Referrals: Sarah Owusu MD [Primary Care Provider] - 1-2 days Time of Disposition: 17:49
[2023-02-08 13:59] LABS: Anisocytosis Slight; Basophils % (A) 1 %; Eosinophils # (A) 0.1 k/uL (0-0.7); Eosinophils % (A) 2 %; HCT 26.5 % (39.0-53.0); HGB 8.2 gm/dL (13.0-17.5); Hypochromasia Marked; Lymphocytes # (A) 0.8 k/uL (1.0-4.8); Lymphocytes % (A) 11 %; MCHC 30.8 g/dL (31.0-37.0); Mean Platelet Volume 7.7; Microcytosis Slight; Monocytes # (A) 0.3 k/uL (0-1.0); Monocytes % (A) 4 %; Neutrophils # (A) 5.9 k/uL (1.3-7.7); Neutrophils % (A) 82 %; Platelet Count 322 k/uL (150-450); RBC 3.41 m/uL (4.30-5.90); RDW 16.6 % (11.5-15.5); WBC 7.2 k/uL (3.8-10.6)
[2023-02-08 14:19] LABS: ALT 12 U/L (4-49); AST 21 U/L (17-59); African American GFR (CKD) 13 (>60 ml/min/1.73 sqM); Albumin 3.3 g/dL (3.5-5.0); Alkaline Phosphatase 218 U/L (38-126); Anion Gap 17 mmol/L; Blood Urea Nitrogen 57 mg/dL (9-20); Calcium 8.8 mg/dL (8.4-10.2); Carbon Dioxide 19 mmol/L (22-30); Chloride 98 mmol/L (98-107); Glucose 278 mg/dL (74-99); Magnesium 2.3 mg/dL (1.6-2.3); Non-African American GFR(CKD) 11 (>60 ml/min/1.73 sqM); Potassium 5.1 mmol/L (3.5-5.1); Sodium 134 mmol/L (137-145); Total Bilirubin 0.6 mg/dL (0.2-1.3); Total Protein 7.1 g/dL (6.3-8.2)
[2023-02-08 14:50] LABS: Partial Thromboplastin Time 27.9 sec (22.0-30.0); Prothrombin Time 10.6 sec (10.0-12.5)
--- NOTE | 2023-02-08 16:17 | XR ---
EXAMINATION TYPE: XR chest 2V DATE OF EXAM: 02/08/2023 2:08 PM CLINICAL INDICATION:Male, 62 years old with history of Weakness; PHH COMPARISON: Portable chest 01/30/2023 TECHNIQUE: XR chest 2V. Frontal PA and lateral views of the chest. FINDINGS: Lines/Tubes: None. Heart/mediastinum: Cardiomediastinal silhouette is partially obscured. Heart size upper normal. Med iastinum appears normal. Pulmonary vascularity: Pulmonary vascular congestion. Increased interstitial markings can be seen wit h edema or pneumonitis. An element of chronic changes possible. Lungs/Pleura: Mild bilateral perihilar infiltrates suggested which could relate to pulmonary edema. T here is no evidence of pleural effusion, focal consolidation, or pneumothorax. Musculoskeletal: No acute osseous abnormality demonstrated in the limits of the exam. Degenerative c hanges of the shoulders. Multilevel endplate spurring in the spine. Other findings: None. IMPRESSION: Borderline mild cardiomegaly with pulmonary vascular congestion and likely mild edema. Correlate for CHF/fluid overload.
[2023-02-08] MEDS ORDERED: INSULN ASP PRT/INSULIN ASPART 100 UNIT/ML 10 ML VIAL SQ SCH (17:45)
[2023-02-08] MEDS ORDERED: HYDROmorphone 0.5 MG/0.5 ML SYRINGE IVP PRN (17:49)
[2023-02-08] MEDS ORDERED: NALOXONE 0.4 MG/ML 1 ML VIAL IV PRN (17:49)
[2023-02-08 18:04] LABS: Glucose,Whole Blood 320 mg/dL (70-110)
[2023-02-08] MEDS: SODIUM CHLORIDE 0.9% 1,000 ML IV SCH (18:18)
[2023-02-08] MEDS: traMADol 50 MG TAB PO PRN (18:25)
[2023-02-08] MEDS ORDERED: metFORMIN 500 MG TAB PO SCH (21:00)
[2023-02-08 21:18] LABS: Appearance,Urine Cloudy (Clear); Bacteria,Urine Rare /hpf; Bilirubin,Urine Negative (Negative); Blood,Urine Trace (Negative); Color,Urine Yellow; Glucose,Urine (UA) 3+ (Negative); Hyaline Casts,Urine 1 /lpf (0-2); Ketones,Urine Negative (Negative); Leukocyte Esterase,Urine Small (Negative); Mucus,Urine Rare /hpf; Nitrite,Urine Negative (Negative); Protein,Urine 1+ (Negative); RBC,Urine 2 /hpf (0-5); Specific Gravity,Urine 1.017 (1.001-1.035); Squamous Epithelial Cell,Urine <1 /hpf (0-4); Urobilinogen,Urine <2.0 mg/dL (<2.0); WBC,Urine 9 /hpf (0-5)
[2023-02-08] MEDS: GABAPENTIN 300 MG CAP PO SCH (21:40)
[2023-02-08] MEDS: METOPROLOL TARTRATE 50 MG TAB PO SCH (21:40)
[2023-02-08] MEDS: FERROUS SULFATE 325 MG TAB PO SCH (21:40)
--- NOTE | 2023-02-08 23:53 | P.HPIM ---
History of Present Illness H&P Date: 02/08/23 Patient is a 62-year-old male with a PMH of metastatic renal cell carcinoma with suspected metastatic mass in the right atrium, chronic debility, type II DM, hypertension, hyperlipidemia, who presents to the emergency room with complaints of generalized weakness. The patient was recently admitted at our facility from 01/28 - 01/31 and was subsequently transferred to [facility] where the p atient was previously following for his malignancies. The patient states that he underwent brain multiple tests at the facility and is awaiting results. As per the patient's family however, the patient was notified that he has an inoperable malignancy due to extension of the carcinoma into the inferior vena cava. The patient was advised on palliative care. The patient does not recall if there are any plans for intervention at this time. He does not wish to go to [facility] for further management. At time of interview, his only complaint was generalized weakness. Denies chest discomfort, shortness of breath, fever, chills, cough, nausea, vomiting, abdominal pain, diarrhea. In the emergency room a chest x-ray revealed cardiomegaly with pulmonary vascular congestion concerning for CHF. EKG revealed sinus tachycardia at 115 bpm with no additional ST/T-wave changes noted as reviewed by me. Laboratory evaluation revealed hemoglobin of 8.2 (down from 9.0 on 01/31), BUN 57, creatinine 5.09 (up significantly from 2.09 on 01/31), with coronavirus PCR testing positive. ED documentation reviewed and case discussed with ED provider. Review of systems: Pertinent positives and negatives as discussed in HPI, a complete review of systems was performed and all other systems are negative. Physical examination: Vital signs reviewed General: non toxic, no distress, appears older than stated age, obese Derm: no unusual rashes/lesions, warm Head: atraumatic, normocephalic, symmetric Eyes: EOMI, no lid lag, anicteric sclera, pupils equal round reactive to light ENT: Nose and ears atraumatic Neck: No cervical lymphadenopathy, trachea midline, supple Mouth: no lip lesion, mucus membranes moist Cardiovascular: S1S2 reg, no murmur, positive dorsalis pedis pulse bilateral, 1+ bilateral lower extremity pitting edema Lungs: CTA bilateral, no rhonchi, no rales, no accessory muscle use Abdominal: soft, nontender to palpation, no guarding Ext: muscle strength 4 out of 5 in all 4 extremities grossly, no gross muscle atrophy, no contractures Neuro: CN II-XI grossly intact, no gross focal neuro deficits Psych: Alert, oriented, appropriate affect Assessment: PASCUAL on chronic kidney disease in setting of metastatic renal cell carcinoma Microcytic anemia, somewhat lower than baseline Coronavirus PCR positive, asymptomatic Chronic conditions: Type II DM, hypertension, hyperlipidemia, chronic debility Imaging: In the emergency room a chest x-ray revealed cardiomegaly with pulmonary vascular congestion concerning for CHF. EKG revealed sinus tachycardia at 115 bpm with no additional ST/T-wave changes noted as reviewed by me. Data Review: Laboratory evaluation revealed hemoglobin of 8.2 (down from 9.0 on 01/31), BUN 57, creatinine 5.09 (up significantly from 2.09 on 01/31), with coronavirus PCR testing positive. Plan: Nephrology consulted Continue with IV fluids with normal saline 75 mL/h Monitor BMP and CBC Cardiac monitoring Records request sent to [facility], awaiting results Continue with home medications including lower doses of insulin in setting of severe PASCUAL DVT prophylaxis: Lovenox Subq The patient is admitted with an anticipated greater than 2 midnight stay for evaluation of PASCUAL CODE STATUS: Full Code Discussed with: Patient Anticipated discharge place: Home Past Medical History Past Medical History: Cancer, Diabetes Mellitus, Hyperlipidemia, Hypertension Additional Past Medical History / Comment(s): was at [facility] on 01/22 and was told has a mass on the heart and right kidney History of Any Multi-Drug Resistant Organisms: None Reported Additional Past Surgical History / Comment(s): had CODY last week at [facility] Past Anesthesia/Blood Transfusion Reactions: No Reported Reaction Past Psychological History: No Psychological Hx Reported Smoking Status: Never smoker Past Drug Use History: None Reported - Past Family History Father Family Medical History: Hyperlipidemia Mother Family Medical History: Cancer Additional Family Medical History / Comment(s): leukemia Medications and Allergies Home Medications Medication Instructions Recorded Confirmed Type Atorvastatin [Lipitor] 40 mg PO HS 01/28/23 02/08/23 History Cholecalciferol [Vitamin D3 (25 50 mcg PO DAILY 01/28/23 02/08/23 History Mcg = 1000 Iu)] Empagliflozin [Jardiance] 25 mg PO DAILY 01/28/23 02/08/23 History Famotidine [Pepcid] 20 mg PO BID 01/28/23 02/08/23 History Ferrous Sulfate [Feosol] 325 mg PO BID 01/28/23 02/08/23 History Furosemide [Lasix] 20 mg PO BID 01/28/23 02/08/23 History Gabapentin 600 mg PO BID 01/28/23 02/08/23 History Insulin NPH/Reg Insulin 70/30 50 unit SQ AC-SUPPER 01/28/23 02/08/23 History [humuLIN 70/30 VIAL] Insulin NPH/Reg Insulin 70/30 60 units SQ AC-BRKFST 01/28/23 02/08/23 History [humuLIN 70/30 VIAL] Liraglutide [Victoza 2-Shree] 1.8 mg SQ DAILY@1200 01/28/23 02/08/23 History Magnesium Oxide [Magox 400] 400 mg PO DAILY 01/28/23 02/08/23 History Meloxicam [Mobic] 15 mg PO DAILY 01/28/23 02/08/23 History Metoprolol Tartrate [Lopressor] 50 mg PO BID 01/28/23 02/08/23 History allopurinoL [Zyloprim] 100 mg PO DAILY 01/28/23 02/08/23 History amLODIPine [Norvasc] 10 mg PO DAILY 01/28/23 02/08/23 History calcitrioL [Calcitriol] 0.5 mcg PO SUMOWEFR 01/28/23 02/08/23 History lisinopriL [Zestril] 10 mg PO DAILY 01/28/23 02/08/23 History metFORMIN HCL 1,000 mg PO BID 01/28/23 02/08/23 History traMADol HCL 100 mg PO Q8H PRN 01/28/23 02/08/23 History Rivaroxaban [Xarelto] 20 mg PO DIRECTED 02/08/23 02/08/23 History Allergies Allergy/AdvReac Type Severity Reaction Status Date / Time avocado Allergy Swelling Verified 02/08/23 14:27 Penicillins Allergy Rash/Hives Verified 02/08/23 14:27 Physical Exam Vitals: Vital Signs Temp Pulse Resp BP Pulse Ox 02/08/23 19:34 99.5 F 110 H 16 102/74 94 L 02/08/23 18:29 98.2 F 116 H 20 101/51 97 02/08/23 15:24 112 H 20 113/72 95 02/08/23 13:11 99.3 F 117 H 18 119/70 98 Intake and Output 02/08/23 02/08/23 02/08/23 06:59 14:59 22:59 Other: Weight 108.318 kg Results CBC & Chem 7: 02/08/23 13:51 02/08/23 13:51 Labs: Abnormal Lab Results - Last 24 Hours (Table) 02/08/23 02/08/23 02/08/23 Range/Units 13:51 13:51 18:03 RBC 3.41 L (4.30-5.90) m/uL Hgb 8.2 L (13.0-17.5) gm/dL Hct 26.5 L (39.0-53.0) % MCV 78.0 L (80.0-100.0) fL MCH 24.0 L (25.0-35.0) pg MCHC 30.8 L (31.0-37.0) g/dL RDW 16.6 H (11.5-15.5) % Lymphocytes # 0.8 L (1.0-4.8) k/uL Sodium 134 L (137-145) mmol/L Carbon Dioxide 19 L (22-30) mmol/L BUN 57 H (9-20) mg/dL Creatinine 5.09 H (0.66-1.25) mg/dL Glucose 278 H (74-99) mg/dL POC Glucose (mg/dL) 320 H (70-110) mg/dL Alkaline Phosphatase 218 H (38-126) U/L Albumin 3.3 L (3.5-5.0) g/dL Urine Protein (Negative) Urine Glucose (UA) (Negative) Urine Blood (Negative) Ur Leukocyte Esterase (Negative) Urine WBC (0-5) /hpf Urine Bacteria (None) /hpf Urine Mucus (None) /hpf SARS-CoV-2 (PCR) (Not Detectd) 02/08/23 02/08/23 Range/Units 20:55 20:55 RBC (4.30-5.90) m/uL Hgb (13.0-17.5) gm/dL Hct (39.0-53.0) % MCV (80.0-100.0) fL MCH (25.0-35.0) pg MCHC (31.0-37.0) g/dL RDW (11.5-15.5) % Lymphocytes # (1.0-4.8) k/uL Sodium (137-145) mmol/L Carbon Dioxide (22-30) mmol/L BUN (9-20) mg/dL Creatinine (0.66-1.25) mg/dL Glucose (74-99) mg/dL POC Glucose (mg/dL) (70-110) mg/dL Alkaline Phosphatase (38-126) U/L Albumin (3.5-5.0) g/dL Urine Protein 1+ H (Negative) Urine Glucose (UA) 3+ H (Negative) Urine Blood Trace H (Negative) Ur Leukocyte Esterase Small H (Negative) Urine WBC 9 H (0-5) /hpf Urine Bacteria Rare H (None) /hpf Urine Mucus Rare H (None) /hpf SARS-CoV-2 (PCR) Detected A (Not Detectd)
[2023-02-09 04:38] LABS: Anisocytosis Slight; HCT 26.5 % (39.0-53.0); HGB 8.1 gm/dL (13.0-17.5); Hypochromasia Marked; MCH 23.7 pg (25.0-35.0); MCHC 30.5 g/dL (31.0-37.0); MCV 77.6 fL (80.0-100.0); Microcytosis Slight; Platelet Count 307 k/uL (150-450); RBC 3.41 m/uL (4.30-5.90); RDW 16.4 % (11.5-15.5); WBC 6.3 k/uL (3.8-10.6)
[2023-02-09 04:59] LABS: African American GFR (CKD) 16 (>60 ml/min/1.73 sqM); Anion Gap 13 mmol/L; Blood Urea Nitrogen 56 mg/dL (9-20); Calcium 8.6 mg/dL (8.4-10.2); Carbon Dioxide 20 mmol/L (22-30); Chloride 102 mmol/L (98-107); Glucose 112 mg/dL (74-99); Non-African American GFR(CKD) 14 (>60 ml/min/1.73 sqM); Potassium 5.3 mmol/L (3.5-5.1); Sodium 135 mmol/L (137-145)
[2023-02-09 06:15] LABS: Glucose,Whole Blood 114 mg/dL (70-110)
[2023-02-09] MEDS: INSULIN ASPART (NovoLOG) 100 UNIT/ML VIAL SQ SCH ×2 (06:21→13:31)
[2023-02-09] MEDS ORDERED: INSULN ASP PRT/INSULIN ASPART 100 UNIT/ML 10 ML VIAL SQ SCH (07:30)
[2023-02-09] MEDS ORDERED: allopurinoL 100 MG TAB PO SCH (09:00)
[2023-02-09] MEDS ORDERED: CHOLECALCIFEROL 25 MCG (1000 IU) TABLET PO SCH (09:00)
[2023-02-09] MEDS ORDERED: DAPAGLIFLOZIN PROPANEDIOL 10 MG TABLET PO SCH (09:00)
[2023-02-09] MEDS ORDERED: ENOXAPARIN 40 MG/0.4 ML SYRINGE SQ SCH (09:00)
[2023-02-09] MEDS ORDERED: amLODIPine 10 MG TAB PO SCH (09:00)
[2023-02-09] MEDS ORDERED: ENOXAPARIN 30 MG/0.3 ML SYRINGE SQ SCH (09:30)
[2023-02-09] MEDS: METOPROLOL TARTRATE 50 MG TAB PO SCH ×2 (10:21→20:28)
[2023-02-09] MEDS: GABAPENTIN 300 MG CAP PO SCH ×2 (10:21→20:28)
[2023-02-09] MEDS: FAMOTIDINE 20 MG TAB PO SCH (10:21)
[2023-02-09] MEDS: FERROUS SULFATE 325 MG TAB PO SCH (10:21)
[2023-02-09] MEDS: SODIUM CHLORIDE 0.9% 1,000 ML IV SCH (10:22)
[2023-02-09 11:10] LABS: Glucose,Whole Blood 175 mg/dL (70-110)
--- NOTE | 2023-02-09 11:58 | P.NPCON ---
History of Present Illness - Reason for Consult acute renal failure - History of Present Illness Patient is a 62-year-old male with history of hypertension, type 2 diabetes, hyperlipidemia and chronic kidney disease. Patient also has metastatic renal cell carcinoma with metastases to the heart and inferior vena cava. It appears that the tumor is inoperable and family is considering palliative/hospice care. Patient is admitted to the hospital with increased weakness and multiple history of falls. Serum creatinine 5.0 yesterday and decreased to 4.27 today. Currently maintained on IV fluids. Patient has history of CK D NKF stage III with baseline creatinine 1.6-1.8 mg/dL. He was recently noted to have acute kidney injury during his admission from 01 27 to 01/31/2023 with serum creatinine of 2.9 at peak and decreased to 2.0 at the time of discharge. Patient is noted to be on NSAIDs, meloxicam which was discontinued last visit but noted again on his home med list. Review of Systems As per HPI Past Medical History Past Medical History: Cancer, Diabetes Mellitus, Hyperlipidemia, Hypertension Additional Past Medical History / Comment(s): was at [facility] on 01/22 and was told has a mass on the heart and right kidney History of Any Multi-Drug Resistant Organisms: None Reported Additional Past Surgical History / Comment(s): had CODY last week at [facility] Past Anesthesia/Blood Transfusion Reactions: No Reported Reaction Past Psychological History: No Psychological Hx Reported Smoking Status: Never smoker Past Drug Use History: None Reported - Past Family History Father Family Medical History: Hyperlipidemia Mother Family Medical History: Cancer Additional Family Medical History / Comment(s): leukemia Medications and Allergies Home Medications Medication Instructions Recorded Confirmed Type Atorvastatin [Lipitor] 40 mg PO HS 01/28/23 02/08/23 History Cholecalciferol [Vitamin D3 (25 50 mcg PO DAILY 01/28/23 02/08/23 History Mcg = 1000 Iu)] Empagliflozin [Jardiance] 25 mg PO DAILY 01/28/23 02/08/23 History Famotidine [Pepcid] 20 mg PO BID 01/28/23 02/08/23 History Ferrous Sulfate [Feosol] 325 mg PO BID 01/28/23 02/08/23 History Furosemide [Lasix] 20 mg PO BID 01/28/23 02/08/23 History Gabapentin 600 mg PO BID 01/28/23 02/08/23 History Insulin NPH/Reg Insulin 70/30 50 unit SQ AC-SUPPER 01/28/23 02/08/23 History [humuLIN 70/30 VIAL] Insulin NPH/Reg Insulin 70/30 60 units SQ AC-BRKFST 01/28/23 02/08/23 History [humuLIN 70/30 VIAL] Liraglutide [Victoza 2-Shree] 1.8 mg SQ DAILY@1200 01/28/23 02/08/23 History Magnesium Oxide [Magox 400] 400 mg PO DAILY 01/28/23 02/08/23 History Meloxicam [Mobic] 15 mg PO DAILY 01/28/23 02/08/23 History Metoprolol Tartrate [Lopressor] 50 mg PO BID 01/28/23 02/08/23 History allopurinoL [Zyloprim] 100 mg PO DAILY 01/28/23 02/08/23 History amLODIPine [Norvasc] 10 mg PO DAILY 01/28/23 02/08/23 History calcitrioL [Calcitriol] 0.5 mcg PO SUMOWEFR 01/28/23 02/08/23 History lisinopriL [Zestril] 10 mg PO DAILY 01/28/23 02/08/23 History metFORMIN HCL 1,000 mg PO BID 01/28/23 02/08/23 History traMADol HCL 100 mg PO Q8H PRN 01/28/23 02/08/23 History Rivaroxaban [Xarelto] 20 mg PO DIRECTED 02/08/23 02/08/23 History Allergies Allergy/AdvReac Type Severity Reaction Status Date / Time avocado Allergy Swelling Verified 02/08/23 14:27 Penicillins Allergy Rash/Hives Verified 02/08/23 14:27 Physical Exam Vitals: Vital Signs Temp Pulse Pulse Resp BP BP Pulse Ox 02/09/23 07:21 99.2 F 113 H 18 107/55 95 02/09/23 02:00 99.4 F 95 19 123/64 95 02/08/23 23:00 97.7 F 96 18 102/52 97 02/08/23 22:36 99.0 F 104 H 20 127/76 97 02/08/23 19:34 99.5 F 110 H 16 102/74 94 L 02/08/23 18:29 98.2 F 116 H 20 101/51 97 02/08/23 15:24 112 H 20 113/72 95 02/08/23 13:11 99.3 F 117 H 18 119/70 98 Intake and Output 02/08/23 02/09/23 02/09/23 22:59 06:59 14:59 Other: Voiding Method Urinal # Voids 0 # Bowel Movements 0 Weight 108.318 kg Patient is awake, comfortable, in no acute distress. He is lethargic Examination of the heart S1 and S2 Examination of the lungs bilateral breath sounds are heard. Decreased breath sounds at the bases Abdomen is soft nontender obese Examination of lower extremity shows no significant edema Results - Lab Results Most recent lab results Calcium 8.6 mg/dL (8.4-10.2) 02/09/23 04:25 Magnesium 2.3 mg/dL (1.6-2.3) 02/08/23 13:51 02/09/23 04:25 02/09/23 04:25 Assessment and Plan Assessment: 1. Acute kidney injury, prerenal as well as secondary to NSAIDs. Currently improving with IV hydration. Agree with discontinuation of metformin and farxiga. Urine output is not accurately charted. 2. 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 3. Metastatic right renal cell cancer with extension into the inferior vena cava and right ventricle. The case is inoperable and family is considering palliative care/hospice care. Plan: Continue with IV fluids Maintain patient off of NSAIDs Repeat labs in a.m. Agree with discussion regarding hospice care.
[2023-02-09] MEDS ORDERED: NON FORMULARY DRUG (Liraglutide [Victoza 2-Pak] 0.6 MG/0.1 ML Ml) SQ SCH (12:00)
[2023-02-09] MEDS ORDERED: ACETAMINOPHEN TAB 325 MG TAB PO PRN (13:15)
[2023-02-09] MEDS ORDERED: ONDANSETRON 4 MG/2 ML VIAL IVP PRN (13:15)
[2023-02-09] MEDS ORDERED: LORazepam 2 MG/ML INJ IV PRN (13:15)
--- NOTE | 2023-02-09 13:27 | P.PN ---
Subjective Progress Note Date: 02/09/23 Hospital Course: 62-year-old male with a PMH of metastatic renal cell carcinoma with suspected metastatic mass in the right atrium, chronic debility, type II DM, hypertension, hyperlipidemia, who presents to the emergency room with complaints of generalized weakness and frequent falls. Patient was recently in [facility], he was told that his malignancy is inoperable, was advised to seek palliative care. In the emergency room a chest x-ray revealed cardiomegaly with pulmonary vascular congestion concerning for CHF. EKG revealed sinus tachycardia at 115 bpm with no additional ST/T-wave changes noted as reviewed by me. Laboratory evaluation revealed hemoglobin of 8.2 (down from 9.0 on 01/31), BUN 57, creatinine 5.09 (up significantly from 2.09 on 01/31), with coronavirus PCR testing positive. Patient admitted for further workup. Nephrology also consulted. Subjective: She is seen and examined at bedside. No acute events overnight. Pertinent positives and negatives as discussed above, a complete review of systems was performed and all other systems are negative. Vitals Signs Reviewed. General: non toxic, no distress, appears older than stated age, obese Derm: no unusual rashes/lesions, warm Head: atraumatic, normocephalic, symmetric Eyes: EOMI, no lid lag, anicteric sclera, pupils equal round reactive to light ENT: Nose and ears atraumatic Neck: No cervical lymphadenopathy, trachea midline, supple Mouth: no lip lesion, mucus membranes moist Cardiovascular: S1S2 reg, no murmur, positive dorsalis pedis pulse bilateral, 1+ bilateral lower extremity pitting edema Lungs: CTA bilateral, no rhonchi, no rales, no accessory muscle use Abdominal: soft, nontender to palpation, no guarding Ext: muscle strength 4 out of 5 in all 4 extremities grossly, no gross muscle atrophy, no contractures Neuro: CN II-XI grossly intact, no gross focal neuro deficits Psych: Alert, orientedx2, appropriate affect Data Reviewed Today: Pertinent Labs: WBC 6.3, hemoglobin 8.1, potassium 5.3, creatinine 4.7, glucose range between 112-175 Imaging: No new imaging Assessment and Plan: Acute kidney injury on chronic kidney disease Hyperkalemia Metastatic renal cell carcinoma with mass extension into right ventricle Syncope Frequent falls Acute encephalopathy Asymptomatic COVID-19 Iron deficiency anemia Chronic debility Type 2 diabetes Hypertension Dyslipidemia -Had a discussion with brother, patient will be comfort care measures -hospice consult pending -tylenol 650 q6h PRN, dilaudid 0.5 IV q3h PRN, monitor respiratory depression -nephro note reviewed - agree with hospice DVT ppx:N/A Code status: DNR/DNI Anticipated discharge place: pending clinical course Anticipated discharge time: pending clinical course Objective - Vital Signs Vital signs: Vital Signs Temp 99.2 F 02/09/23 07:21 Pulse 113 H 02/09/23 07:21 Resp 18 02/09/23 07:21 BP 107/55 02/09/23 07:21 Pulse Ox 95 02/09/23 07:21 FiO2 Intake & Output 02/08/23 02/09/23 02/09/23 18:59 06:59 18:59 Weight 108.318 kg 108.318 kg Other: Voiding Method Urinal Diaper # Voids 0 # Bowel Movements 0 - Labs CBC & Chem 7: 02/09/23 04:25 02/09/23 04:25 Labs: Abnormal Lab Results - Last 24 Hours (Table) 02/08/23 02/08/23 02/08/23 Range/Units 13:51 13:51 18:03 RBC 3.41 L (4.30-5.90) m/uL Hgb 8.2 L (13.0-17.5) gm/dL Hct 26.5 L (39.0-53.0) % MCV 78.0 L (80.0-100.0) fL MCH 24.0 L (25.0-35.0) pg MCHC 30.8 L (31.0-37.0) g/dL RDW 16.6 H (11.5-15.5) % Lymphocytes # 0.8 L (1.0-4.8) k/uL Sodium 134 L (137-145) mmol/L Potassium (3.5-5.1) mmol/L Carbon Dioxide 19 L (22-30) mmol/L BUN 57 H (9-20) mg/dL Creatinine 5.09 H (0.66-1.25) mg/dL Glucose 278 H (74-99) mg/dL POC Glucose (mg/dL) 320 H (70-110) mg/dL Alkaline Phosphatase 218 H (38-126) U/L Albumin 3.3 L (3.5-5.0) g/dL Urine Protein (Negative) Urine Glucose (UA) (Negative) Urine Blood (Negative) Ur Leukocyte Esterase (Negative) Urine WBC (0-5) /hpf Urine Bacteria (None) /hpf Urine Mucus (None) /hpf SARS-CoV-2 (PCR) (Not Detectd) 02/08/23 02/08/23 02/09/23 Range/Units 20:55 20:55 04:25 RBC 3.41 L (4.30-5.90) m/uL Hgb 8.1 L (13.0-17.5) gm/dL Hct 26.5 L (39.0-53.0) % MCV 77.6 L (80.0-100.0) fL MCH 23.7 L (25.0-35.0) pg MCHC 30.5 L (31.0-37.0) g/dL RDW 16.4 H (11.5-15.5) % Lymphocytes # (1.0-4.8) k/uL Sodium (137-145) mmol/L Potassium (3.5-5.1) mmol/L Carbon Dioxide (22-30) mmol/L BUN (9-20) mg/dL Creatinine (0.66-1.25) mg/dL Glucose (74-99) mg/dL POC Glucose (mg/dL) (70-110) mg/dL Alkaline Phosphatase (38-126) U/L Albumin (3.5-5.0) g/dL Urine Protein 1+ H (Negative) Urine Glucose (UA) 3+ H (Negative) Urine Blood Trace H (Negative) Ur Leukocyte Esterase Small H (Negative) Urine WBC 9 H (0-5) /hpf Urine Bacteria Rare H (None) /hpf Urine Mucus Rare H (None) /hpf SARS-CoV-2 (PCR) Detected A (Not Detectd) 02/09/23 02/09/23 02/09/23 Range/Units 04:25 06:13 11:08 RBC (4.30-5.90) m/uL Hgb (13.0-17.5) gm/dL Hct (39.0-53.0) % MCV (80.0-100.0) fL MCH (25.0-35.0) pg MCHC (31.0-37.0) g/dL RDW (11.5-15.5) % Lymphocytes # (1.0-4.8) k/uL Sodium 135 L (137-145) mmol/L Potassium 5.3 H (3.5-5.1) mmol/L Carbon Dioxide 20 L (22-30) mmol/L BUN 56 H (9-20) mg/dL Creatinine 4.27 H (0.66-1.25) mg/dL Glucose 112 H (74-99) mg/dL POC Glucose (mg/dL) 114 H 175 H (70-110) mg/dL Alkaline Phosphatase (38-126) U/L Albumin (3.5-5.0) g/dL Urine Protein (Negative) Urine Glucose (UA) (Negative) Urine Blood (Negative) Ur Leukocyte Esterase (Negative) Urine WBC (0-5) /hpf Urine Bacteria (None) /hpf Urine Mucus (None) /hpf SARS-CoV-2 (PCR) (Not Detectd)
--- NOTE | 2023-02-09 13:29 | P.PN ---
Progress Note - Text Progress Note Date: 02/09/23 Advanced Care Planning: Diagnoses: Acute kidney injury on chronic kidney disease Hyperkalemia Metastatic renal cell carcinoma with mass extension into right ventricle Syncope Frequent falls Acute encephalopathy Asymptomatic COVID-19 Iron deficiency anemia Chronic debility Type 2 diabetes Hypertension Dyslipidemia Discussion: Person(s) present and participating in discussion:Brother and Patient Summary:Poor progronsis with metastatic renal cell carcinoma, inoperable, likely cause of syncope and frequent falls. Hospice consulted. Now comfort care measures. A total of 20 minutes of face to face time was spent discussing advanced care planning.
[2023-02-09 16:38] LABS: Glucose,Whole Blood 133 mg/dL (70-110)
[2023-02-09] MEDS: traMADol 50 MG TAB PO PRN (18:45)
[2023-02-09 19:30] LABS: Glucose,Whole Blood 152 mg/dL (70-110)
[2023-02-09] MEDS ORDERED: INSULIN DETEMIR (LEVEMIR) 100 UNIT/ML SYR SQ SCH (21:00)
[2023-02-09] MEDS ORDERED: ATORVASTATIN 40 MG TAB PO SCH (21:00)
[2023-02-10 06:25] LABS: Glucose,Whole Blood 123 mg/dL (70-110)
[2023-02-10] MEDS: traMADol 50 MG TAB PO PRN (09:09)
[2023-02-10] MEDS: METOPROLOL TARTRATE 50 MG TAB PO SCH ×2 (09:10→21:15)
[2023-02-10] MEDS: GABAPENTIN 300 MG CAP PO SCH ×2 (09:10→21:15)
[2023-02-10] MEDS: FAMOTIDINE 20 MG TAB PO SCH (09:10)
[2023-02-10 11:05] LABS: Glucose,Whole Blood 293 mg/dL (70-110)
--- NOTE | 2023-02-10 12:49 | P.PN ---
Subjective Patient is seen for follow-up for acute kidney injury and chronic kidney disease. It appears that hospice has been consulted and possible plans for comfort care measures. Patient's family asked me to talk to the patient regarding his renal function. No new labs available. Serum creatinine 4.27 yesterday which was down from 5.09 the day before. Urine output is not accurately charted. Patient states he feels okay and wants to go home with visiting nurses. He is aware that his underlying malignancy is inoperable. I have discussed with the patient he may need dialysis if renal function continues to worsen and if aggressive medical care is desired. However given the underlying diagnosis of extensive malignancy and metastasis renal repla cement therapy is not an ideal option. Objective - Vital Signs Vital signs: Vital Signs Temp 98.8 F 02/10/23 07:15 Pulse 95 02/10/23 07:15 Resp 18 02/10/23 07:15 BP 126/69 02/10/23 07:15 Pulse Ox 92 L 02/10/23 07:15 FiO2 Intake & Output 02/09/23 02/10/23 02/10/23 18:59 06:59 18:59 Other: Voiding Method Diaper Diaper # Voids 2 2 - Exam Patient is awake, comfortable, no acute distress Examination of the heart S1 and S2 Examination of the lungs bilateral breath sounds are heard Examination of lower extremity shows trace edema bilaterally with chronic skin changes [employer] exam shows patient is moving all 4 extremities. - Labs CBC & Chem 7: 02/09/23 04:25 02/09/23 04:25 Labs: Abnormal Lab Results - Last 24 Hours (Table) 02/09/23 02/09/23 02/10/23 Range/Units 16:37 19:29 06:25 POC Glucose (mg/dL) 133 H 152 H 123 H (70-110) mg/dL 02/10/23 Range/Units 11:04 POC Glucose (mg/dL) 293 H (70-110) mg/dL Assessment and Plan Assessment: 1. Acute kidney injury, prerenal as well as secondary to NSAIDs. Currently improving with IV hydration. Agree with discontinuation of metformin and farxiga. Urine output is not accurately charted. 2. 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 Baseline creatinine around 1.9-2 mg/dL. 3. Metastatic right renal cell cancer with extension into the inferior vena cava and right ventricle. The case is inoperable and family is considering palliative care/hospice care. Plan: Maintain patient off of NSAIDs Repeat labs if patient continues to request aggressive medical care Agree with discussion regarding hospice care.
--- NOTE | 2023-02-10 13:52 | P.PN ---
Subjective Progress Note Date: 02/10/23 Hospital Course: 62-year-old male with a PMH of metastatic renal cell carcinoma with suspected metastatic mass in the right atrium, chronic debility, type II DM, hypertension, hyperlipidemia, who presents to the emergency room with complaints of generalized weakness and frequent falls. Patient was recently in [facility], he was told that his malignancy is inoperable, was advised to seek palliative care. In the emergency room a chest x-ray revealed cardiomegaly with pulmonary vascular congestion concerning for CHF. EKG revealed sinus tachycardia at 115 bpm with no additional ST/T-wave changes noted as reviewed by me. Laboratory evaluation revealed hemoglobin of 8.2 (down from 9.0 on 01/31), BUN 57, creatinine 5.09 (up significantly from 2.09 on 01/31), with coronavirus PCR testing positive. Patient admitted for further workup. Nephrology also consulted. Patient is encephalopathic. Cannot leave AMA. Due to his malignancy being inoperable and poor functional status at home, the family agrees with comfort measures and hospice outpatient. Pending discharge to hospice home Subjective: Patient seen and examined at bedside. No acute events overnight. Patient is unaware of the events that happened after he was discharged from [facility]. He is also unaware of the discussion he had with his brother and rest of the staff. He is unsure how he ended up in the hospital. He claims that he wants to get out of the hospital. Pertinent positives and negatives as discussed above, a complete review of systems was performed and all other systems are negative. Vitals Signs Reviewed. General: non toxic, no distress, appears older than stated age, obese Derm: no unusual rashes/lesions, warm Head: atraumatic, normocephalic, symmetric Eyes: EOMI, no lid lag, anicteric sclera, pupils equal round reactive to light ENT: Nose and ears atraumatic Neck: No cervical lymphadenopathy, trachea midline, supple Mouth: no lip lesion, mucus membranes moist Cardiovascular: S1S2 reg, no murmur, positive dorsalis pedis pulse bilateral, 1+ bilateral lower extremity pitting edema Lungs: CTA bilateral, no rhonchi, no rales, no accessory muscle use Abdominal: soft, nontender to palpation, no guarding Ext: muscle strength 4 out of 5 in all 4 extremities grossly, no gross muscle atrophy, no contractures Neuro: CN II-XI grossly intact, no gross focal neuro deficits Psych: Alert, orientedx2, appropriate affect Data Reviewed Today: Pertinent Labs: no new labs Imaging: No new imaging Assessment and Plan: Acute kidney injury on chronic kidney disease Hyperkalemia Metastatic renal cell carcinoma with mass extension into right ventricle Syncope Frequent falls Acute encephalopathy Asymptomatic COVID-19 Iron deficiency anemia Chronic debility Type 2 diabetes Hypertension Dyslipidemia -Continue comfort care measures -Pending discharge to hospice home tomorrow -tylenol 650 q6h PRN, dilaudid 0.5 IV q3h PRN, monitor respiratory depression -nephro note reviewed - agree with hospice Patient cannot leave AMA. DVT ppx:N/A Code status: DNR/DNI Anticipated discharge place: Hospice home Anticipated discharge time: tomorrow Objective - Vital Signs Vital signs: Vital Signs Temp 98.8 F 02/10/23 07:15 Pulse 95 02/10/23 07:15 Resp 18 02/10/23 07:15 BP 126/69 02/10/23 07:15 Pulse Ox 92 L 02/10/23 07:15 FiO2 Intake & Output 02/09/23 02/10/23 02/10/23 18:59 06:59 18:59 Other: Voiding Method Diaper Diaper # Voids 2 2 - Labs CBC & Chem 7: 02/09/23 04:25 02/09/23 04:25 Labs: Abnormal Lab Results - Last 24 Hours (Table) 02/09/23 02/09/23 02/10/23 Range/Units 16:37 19:29 06:25 POC Glucose (mg/dL) 133 H 152 H 123 H (70-110) mg/dL 02/10/23 Range/Units 11:04 POC Glucose (mg/dL) 293 H (70-110) mg/dL
[2023-02-10 15:23] VITALS: RESP 16
[2023-02-10 16:43] LABS: Glucose,Whole Blood 290 mg/dL (70-110)
[2023-02-10 20:10] LABS: Glucose,Whole Blood 313 mg/dL (70-110)
[2023-02-11 05:37] LABS: Glucose,Whole Blood 244 mg/dL (70-110)
[2023-02-11] MEDS: FAMOTIDINE 20 MG TAB PO SCH (09:07)
[2023-02-11] MEDS: GABAPENTIN 300 MG CAP PO SCH (09:07)
[2023-02-11] MEDS: METOPROLOL TARTRATE 50 MG TAB PO SCH (09:07)
[2023-02-11 11:03] LABS: Glucose,Whole Blood 317 mg/dL (70-110)
--- NOTE | 2023-02-11 12:08 | P.DS ---
Providers Date of admission: 02/08/23 17:49 Expected date of discharge: 02/11/23 Attending physician: Alice Coffman DO Consults: 02/08/23 23:51 Consult Physician Urgent Consulting Provider: Isaias Tripathi Consult Reason/Comments: PASCUAL on CKD Do you want consulting provider notified?: Yes Primary care physician: [facility] Course: Discharge Diagnosis: Acute kidney injury on chronic kidney disease Hyperkalemia Metastatic renal cell carcinoma with mass extension into right ventricle Syncope Frequent falls Acute encephalopathy Asymptomatic COVID-19 Iron deficiency anemia Chronic debility Type 2 diabetes Hypertension Dyslipidemia Hospital Course: 62-year-old male with a PMH of metastatic renal cell carcinoma with suspected metastatic mass in the right atrium, chronic debility, type II DM, hypertension, hyperlipidemia, who presents to the emergency room with complaints of generalized weakness and frequent falls. Patient was recently in [facility], he was told that his malignancy is inoperable, was advised to seek palliative care. In the emergency room a chest x-ray revealed cardiomegaly with pulmonary vascular congestion concerning for CHF. EKG revealed sinus tachycardia at 115 bpm with no additional ST/T-wave changes noted as reviewed by me. Laboratory evaluation revealed hemoglobin of 8.2 (down from 9.0 on 01/31), BUN 57, creatinine 5.09 (up significantly from 2.09 on 01/31), with coronavirus PCR testing positive. Patient admitted for further workup. Nephrology also consulted. Patient is encephalopathic. Due to his malignancy being inoperable and poor functional status at home, the family agrees with comfort measures. Patient being discharged to hospice home. Patient seen and examined at bedside. Vital signs reviewed and stable. General: non toxic, no distress, appears older than stated age, obese Derm: no unusual rashes/lesions, warm Head: atraumatic, normocephalic, symmetric Eyes: EOMI, no lid lag, anicteric sclera, pupils equal round reactive to light ENT: Nose and ears atraumatic Neck: No cervical lymphadenopathy, trachea midline, supple Mouth: no lip lesion, mucus membranes moist Cardiovascular: S1S2 reg, no murmur, positive dorsalis pedis pulse bilateral, 1+ bilateral lower extremity pitting edema Lungs: CTA bilateral, no rhonchi, no rales, no accessory muscle use Abdominal: soft, nontender to palpation, no guarding Ext: muscle strength 4 out of 5 in all 4 extremities grossly, no gross muscle atrophy, no contractures Neuro: CN II-XI grossly intact, no gross focal neuro deficits Psych: Alert, orientedx2, appropriate affect A total of 33 minutes of time were spent preparing this complex discharge summary. Patient was discharged on 02/11/23 at 1118. Patient Condition at Discharge: Stable Plan - Discharge Summary Discharge Rx Participant: No New Discharge Prescriptions: Continue traMADol HCL 100 mg PO Q8H PRN PRN Reason: Pain Famotidine [Pepcid] 20 mg PO BID Gabapentin 600 mg PO BID Metoprolol Tartrate [Lopressor] 50 mg PO BID Discontinued allopurinoL [Zyloprim] 100 mg PO DAILY amLODIPine [Norvasc] 10 mg PO DAILY calcitrioL [Calcitriol] 0.5 mcg PO SUMOWEFR Cholecalciferol [Vitamin D3 (25 Mcg = 1000 Iu)] 50 mcg PO DAILY Ferrous Sulfate [Feosol] 325 mg PO BID Furosemide [Lasix] 20 mg PO BID Insulin NPH/Reg Insulin 70/30 [humuLIN 70/30 VIAL] 50 unit SQ AC-SUPPER Liraglutide [Victoza 2-Shree] 1.8 mg SQ DAILY@1200 lisinopriL [Zestril] 10 mg PO DAILY Rivaroxaban [Xarelto] 20 mg PO DIRECTED Atorvastatin [Lipitor] 40 mg PO HS Empagliflozin [Jardiance] 25 mg PO DAILY Insulin NPH/Reg Insulin 70/30 [humuLIN 70/30 VIAL] 60 units SQ AC-BRKFST Magnesium Oxide [Magox 400] 400 mg PO DAILY Meloxicam [Mobic] 15 mg PO DAILY metFORMIN HCL 1,000 mg PO BID Discharge Medication List Famotidine [Pepcid] 20 mg PO BID 01/28/23 [History] Gabapentin 600 mg PO BID 01/28/23 [History] Metoprolol Tartrate [Lopressor] 50 mg PO BID 01/28/23 [History] traMADol HCL 100 mg PO Q8H PRN 01/28/23 [History] Follow up Appointment(s)/Referral(s): Sarah Owusu MD [Primary Care Provider] - 1-2 days Patient Instructions/Handouts: Hospice Care (GEN) Discharge Disposition: OTHER INSTITUTION NOT DEFINED
[2023-02-11 14:17] VITALS: BP 105/63; PULSE 81; TEMP 99.9
[2023-02-11] MEDS: traMADol 50 MG TAB PO PRN (15:07)
== END 2023-02-11 16:15 | disposition hospice, inpatient (51) | DRG 469 ==
LOC: EC 13:08 → 5NMEDONC 17:49 → 4SSUR 22:29
PROVIDERS: ADMIT Internal Medicine; ATTEND Internal Medicine
DX: N17.9 Acute kidney failure, unspecified (principal); R53.1 Weakness; U07.1 COVID-19; G93.41 Metabolic encephalopathy; C79.89 Secondary malignant neoplasm of other specified sites; I13.0 Hypertensive heart and chronic kidney disease with heart failure and stage 1 through stage 4 chronic kidney disease, or unspecified chronic kidney disease; C64.1 Malignant neoplasm of right kidney, except renal pelvis; Z20.822 Contact with and (suspected) exposure to COVID-19; E11.22 Type 2 diabetes mellitus with diabetic chronic kidney disease; D50.9 Iron deficiency anemia, unspecified; N18.32 Chronic kidney disease, stage 3b; E78.5 Hyperlipidemia, unspecified; E87.5 Hyperkalemia; R29.6 Repeated falls; R55 Syncope and collapse; G93.89 Other specified disorders of brain; R00.0 Tachycardia, unspecified; T39.395A Adverse effect of other nonsteroidal anti-inflammatory drugs [NSAID], initial encounter; X58.XXXA Exposure to other specified factors, initial encounter; Z79.01 Long term (current) use of anticoagulants; Z79.1 Long term (current) use of non-steroidal anti-inflammatories (NSAID); Z79.84 Long term (current) use of oral hypoglycemic drugs; Z91.81 History of falling; Z88.0 Allergy status to penicillin; Z91.018 Allergy to other foods
CPT/HCPCS: 36415; 71046; 80048; 80053; 81001; 83605; 83735; 84484; 85025; 85027; 85610; 85730; 87636; 93005; 96360; 96361; 99285